=== PATIENT | female | born 1970 | race Caucasian/White ===

== ENCOUNTER 2020-10-16 14:06 | Outpatient (REF) | payer OTHER, SELFPAY | END 2020-10-16 14:07 | disposition home or self-care (01) | LOC: HO.LAB 14:06 | PROVIDERS: Visit Provider Hospitalist | DX: Z20.828 Contact with and (suspected) exposure to other viral communicable diseases (principal) | CPT/HCPCS: U0003 ==

== ENCOUNTER 2020-10-26 16:19 | Outpatient (REF) | payer OTHER, SELFPAY ==
--- NOTE | 2020-10-26 16:23 | MM_ITS ---
EXAMINATION: MM SCREENING DIGITAL BREAST TOMOSYNTHESIS, BILATERAL CLINICAL INFORMATION: Screening. Asymptomatic. The lifetime risk of breast cancer based on the Tyrer-Cuzick Model is 9%. COMPARISON: Mammography: 10/21/2019, 11/09/2018, 10/08/2018, targeted right breast ultrasound 10/08/2018 TECHNIQUE: Digital breast tomosynthesis is performed in both the craniocaudal and mediolateral oblique views along with computer-aided detection (CAD). Synthesized 2D images are generated from the tomosynthesis. FINDINGS: The breasts are heterogeneously dense, which may obscure small masses (ACR BI-RADS breast composition Category c). There is a fibrocystic parenchymal pattern similar to prior studies. There is no significant mass or interval architectural abnormality or abnormal calcifications.The skin contours are smooth. No significant changes. MM/MM tomosynthesis screening BI IMPRESSION: No significant changes from prior exams. ASSESSMENT: BI-RADS 2: Benign RECOMMENDATION: Routine annual mammography screening. This patient's information was entered into a reminder system with a target due date for their next mammogram.
== END 2020-10-26 16:20 | disposition home or self-care (01) ==
LOC: HO.MAMMO 16:19
PROVIDERS: PCP Hospitalist; Visit Provider Family Medicine
DX: Z12.31 Encounter for screening mammogram for malignant neoplasm of breast (principal)
CPT/HCPCS: 77063; 77067

== ENCOUNTER 2020-11-25 09:04 | Outpatient (REF) | payer OTHER, SELFPAY ==
[2020-11-25 10:38] LABS: Creatinine Urine 120.41 mg/dL; Microalbum/Creatinine Ratio Ur 4.9 ug/mg cr
[2020-11-25 10:40] LABS: Alanine Aminotransferase 13 U/L (0-31); Albumin Level 4.3 g/dL (3.5-5.0); Alkaline Phosphatase 116 U/L (39-117); Anion Gap 15 (12-20); Aspartate Amino Transferase 15 U/L (5-31); Bilirubin Total 0.4 mg/dL (0.0-1.0); Blood Urea Nitrogen 15 mg/dL (9-16); Calcium 9.4 mg/dL (8.4-10.2); Carbon Dioxide 27 mmol/L (22-29); Chloride 104 mmol/L (96-108); Cholesterol 166 mg/dL; Estimated Glomerular Filt Rate > 60; Glucose Fasting 101 mg/dL (60-99); HDL Cholesterol 62 mg/dL; LDL Cholesterol Calculated 65 mg/dl; Potassium 5.1 mmol/l (3.3-5.1); Sodium 141 mmol/L (135-145); Total Protein 7.4 g/dL (6.5-8.0); Triglycerides 197 mg/dL
[2020-11-25 11:01] LABS: TSH reflex Free T4 0.77 mIU/mL (0.32-4.0)
== END 2020-11-25 09:05 | disposition home or self-care (01) ==
LOC: HO.10HDL 09:04
PROVIDERS: Visit Provider Family Medicine
DX: Z00.00 Encounter for general adult medical examination without abnormal findings (principal); R03.0 Elevated blood-pressure reading, without diagnosis of hypertension
CPT/HCPCS: 36415; 80053; 80061; 82043; 84443

== ENCOUNTER 2021-12-18 09:42 | Outpatient (REF) | payer BC, SELFPAY ==
[2021-12-18 11:27] LABS: Alanine Aminotransferase 20 U/L (0-31); Albumin Level 4.3 g/dL (3.5-5.0); Alkaline Phosphatase 121 U/L (39-117); Anion Gap 12 (12-20); Aspartate Amino Transferase 21 U/L (5-31); Bilirubin Total 0.4 mg/dL (0.0-1.0); Blood Urea Nitrogen 13 mg/dL (9-16); Calcium 9.8 mg/dL (8.4-10.2); Carbon Dioxide 29 mmol/L (22-29); Chloride 104 mmol/L (96-108); Cholesterol 183 mg/dL; Estimated Glomerular Filt Rate > 60; Glucose Fasting 127 mg/dL (60-99); HDL Cholesterol 59 mg/dL; LDL Cholesterol Calculated 102 mg/dl; Potassium 5.4 mmol/L (3.3-5.1); Sodium 140 mmol/L (135-145); Total Protein 7.6 g/dL (6.5-8.0); Triglycerides 110 mg/dL
[2021-12-18 11:50] LABS: TSH reflex Free T4 0.69 uIU/mL (0.32-4.0)
== END 2021-12-18 09:43 | disposition home or self-care (01) ==
LOC: HO.LAB 09:42
PROVIDERS: PCP Family Medicine; Visit Provider Family Medicine
DX: Z00.00 Encounter for general adult medical examination without abnormal findings (principal)
CPT/HCPCS: 36415; 80053; 80061; 84443

== ENCOUNTER 2022-02-03 07:33 | Outpatient (REF) | payer BC, SELFPAY ==
--- NOTE | ~2022-02-03 | MM_ITS ---
EXAMINATION: MM SCREENING DIGITAL BREAST TOMOSYNTHESIS, BILATERAL CLINICAL INFORMATION: Screening. Asymptomatic. The lifetime risk of breast cancer based on the Tyrer-Cuzick Model is 8.1%. COMPARISON: Mammography: October 26, 2020 and studies dating back to January 10, 2014 TECHNIQUE: Digital breast tomosynthesis is performed in both the craniocaudal and mediolateral oblique views along with computer-aided detection (CAD). Synthesized 2D images are generated from the tomosynthesis. FINDINGS: The breasts are heterogeneously dense, which may obscure small masses (ACR BI-RADS breast composition Category c). There are no significant masses, abnormal calcifications, or other abnormalities. MM/MM tomosynthesis screening BI IMPRESSION: There are no significant changes from prior study. ASSESSMENT: BI-RADS 1: Negative RECOMMENDATION: Routine annual mammography screening. This patient's information was entered into a reminder system with a target due date for their next mammogram.
== END 2022-02-03 07:34 | disposition home or self-care (01) ==
LOC: HO.MAMMO 07:33
PROVIDERS: PCP Family Medicine; Visit Provider Family Medicine
DX: Z12.31 Encounter for screening mammogram for malignant neoplasm of breast (principal)
CPT/HCPCS: 77063; 77067

== ENCOUNTER 2022-08-04 07:55 | Emergency (ER) | payer BC, SELFPAY ==
--- NOTE | ~2022-08-04 | XR_ITS ---
EXAMINATION: XR CHEST CLINICAL INFORMATION: Chest discomfort COMPARISON: CTA chest 10/28/2019, chest radiograph 02/24/2015 TECHNIQUE: 2 views of the chest were obtained. FINDINGS: No significant abnormality is noted involving the heart, lungs, mediastinum, bony thorax or soft tissues. Minimally prominent left epicardial fat pad is present. XR/XR chest 2V IMPRESSION: Unremarkable examination.
--- NOTE | 2022-08-04 08:13 | ECG_ITS ---
Test Reason : chest discomfort Blood Pressure : / mmHG Vent. Rate : 085 BPM Atrial Rate : 085 BPM P-R Int : 138 ms QRS Dur : 078 ms QT Int : 374 ms P-R-T Axes : 045 013 014 degrees QTc Int : 445 ms Normal sinus rhythm Nonspecific ST abnormality Abnormal ECG When compared with ECG of 28-OCT-2019 10:19, Heart rate has decreased Referred By: Generic ED Physician Electronically Signed By:VALENTÍN SEGURA
[2022-08-04 08:15] VITALS: BP 155/75; PULSE 88; RESP 16; TEMP 36.3; O2SAT 98; BMI 32.1
[2022-08-04 08:40] LABS: MANUAL DIFF FLAG NO
[2022-08-04 08:41] LABS: Basophils Absolute Auto 0.1 X10*3/uL (0.0-0.2); Basophils Percent Auto 0.5 % (0-2); Eosinophils Absolute Auto 0.3 X10*3/uL (0.0-0.4); Eosinophils Percent Auto 3.2 % (0-4); Hematocrit 40.9 % (37.0-47.0); Hemoglobin 13.3 g/dl (12.0-16.0); Imm Gran Abs Auto 0.03 X10*3/uL (0.00-0.03); Imm Gran Pct Auto 0.3 % (0.0-0.4); Lymphocytes Absolute Auto 2.7 X10*3/uL (1.2-4.9); Lymphocytes Percent Auto 27.8 % (20-40); Mean Corpuscular HGB Conc 32.5 g/dl (31.0-35.0); Mean Corpuscular Hemoglobin 28.7 pg (27.0-33.0); Mean Corpuscular Volume 88.3 fL (80.0-98.0); Mean Platelet Volume 8.6 fL (9.4-12.3); Monocytes Absolute Auto 0.6 X10*3/uL (0.1-1.2); Monocytes Percent Auto 6.5 % (2-11); Neutrophils Absolute Auto 6.1 x10*3/uL (2.0-8.3); Neutrophils Percent Auto 61.7 % (45-73); Platelet Count 341 X10*3/uL (160-400); Red Blood Count 4.63 X10*6/uL (4.20-5.50); Red Cell Distribution Width 13.1 % (11.0-16.0); White Blood Count 9.8 X10*3/uL (4.8-10.8)
[2022-08-04 08:50] VITALS: BP 138/76; PULSE 81; RESP 18; TEMP 37; O2SAT 99
[2022-08-04 09:00] LABS: Anion Gap 18 (12-20); Blood Urea Nitrogen 14 mg/dL (9-16); Calcium 9.5 mg/dL (8.4-10.2); Carbon Dioxide 26 mmol/L (22-29); Chloride 103 mmol/L (96-108); Creatinine Clr Calc Pharmacy 66.5; Estimated Glomerular Filt Rate > 60; Glucose Random 142 mg/dL (60-115); Potassium 5.1 mmol/L (3.3-5.1); Sodium 142 mmol/L (135-145)
[2022-08-04 09:04] LABS: Troponin-I High Sensitivity < 3.5 ng/L (<3.5-17.0)
--- NOTE | 2022-08-04 09:31 | ED_ITS ---
HPI - General Adult General Chief complaint: General Medical Stated complaint: chest discomfort Time Seen by Provider: 08/04/22 08:47 Source: patient Mode of arrival: ambulatory Limitations: no limitations History of Present Illness HPI narrative: 51-year-old female with a history of hypertension and type 2 diabetes who presents to the ER for evaluation left-sided chest soreness for the last 5 days. She reports the soreness comes and goes at random times, last a few minutes and then goes away. She has no associated shortness of breath, nausea, diaphoresis with this. She denies any pain and said it is more of a soreness deep inside. The last few days the pain seems to go into the left shoulder at times. She has a family history of heart attacks in her father when he was elderly, she also has a history of familial hypercholesterolemia in her sister and father. She is on Lipitor. She is a nonsmoker. No current chest pain. MD complaint: chest pain Onset (ago): day(s) (5) Location: chest Radiation: extremity Severity: mild Quality: aching Pain Consistency: intermittent Relieving factors: none Exacerbating factors: none Associated symptoms: denies other symptoms Treatments prior to arrival: none Related Data Previous Rx's Medication Instructions Recorded atorvastatin 10 mg tablet 10 mg PO QPM 90 days #90 tabs 07/23/21 metoprolol succinate 25 mg 25 mg PO DAILY #90 tabs 07/23/21 tablet,extended release 24 hr losartan 50 mg tablet 50 mg PO DAILY #90 tabs 03/13/22 metformin 500 mg tablet,extended 500 mg PO DAILY 90 days #90 tabs 07/29/22 release 24 hr Allergies Allergy/AdvReac Type Severity Reaction Status Date / Time No Known Allergies Allergy Verified 03/23/22 16:15 Review of Systems Review of Systems: Constitutional: No Fever, No Chills ENT/Mouth: No sore throat, No Rhinorrhea, No Swallowing Difficulty Eyes: No Eye Pain, No Swelling, No Redness Cardiovascular: + Chest Pain, No SOB, No Orthopnea, No Edema Respiratory: No Cough, No Sputum, No Wheezing, No dyspnea Gastrointestinal: No Nausea, No Vomiting, No Diarrhea, No abdominal Pain, No Hematochezia, No Melena Genitourinary: No Dysuria, No Urinary Frequency, No Hematuria Musculoskeletal: No joint pain, No Myalgias Skin: No Skin Lesions, No rash Neuro: No Weakness, No Numbness, No Dizziness, No Headache Psych: + Anxiety/Panic, No Depression Heme/Lymph: No Bruising, No Lymphadenopathy Endocrine: No Polyuria, No Polydipsia PMFSH Past Medical History Medical History (Updated 08/04/22 @ 11:23 by MAEVE Ramirez) Encounter for removal of Essure Family History Family History (Updated 05/03/22 @ 09:00 by Portia Aguayo) Father Cancer Myocardial infarction HTN (hypertension) CVD (cardiovascular disease) Mother HTN (hypertension) Alzheimer's disease Diabetes mellitus Brother No problems noted. Sister No problems noted. Daughter No problems noted. Social History Social History Housing: House Alcohol intake: current Alcohol intake frequency: holidays/special occasions only Patient Tobacco Use Status: Never used Tobacco Smoked in Last 30 Days: No e-Cigarette/Vaping Use: Never Used Use of substances other than those prescribed or required for medical reasons: No Advance Directives: No Advance Directives Information Provided: No service: No Current occupational status: employed Current occupation: [employer] Cognitive needs: No Hearing needs: No Vision needs: No Physical Exam ED Vital Signs: Vital Signs - 24 hr 08/04/22 08:15 08/04/22 08:50 Temperature 97.3 F 98.6 F Pulse Rate 88 81 Respiratory Rate 16 18 Blood Pressure 155/75 H 138/76 Pulse Oximetry 98 99 Oxygen Delivery Method Room Air Room Air BMI result Body Mass Index 32.1 Appearance: Alert. Oriented X3. No acute distress. Eyes: Pupils equal, round and reactive to light. ENT: Pharynx normal. Neck: Normal inspection. Neck supple. CVS: Normal heart rate and rhythm. Pulses normal. No chest wall Respiratory: No respiratory distress. Breath sounds normal. Abdomen: Soft and nontender. +BS x4 Skin: Skin warm and dry. Normal skin color. Normal skin turgor. No rashes. Extremities: No lower extremity edema. No calf tenderness or swelling Neuro: Oriented X 3. No motor deficit. No sensory deficit. Course Course Course Narrative: 51-year-old female with history of DM 2, HTN, HLD presents to the ER for evaluation of 5 days of intermittent left-sided chest ?soreness.? EKG without ischemic changes. Labs pending. Reevaluation(s) Reevaluation #1: Troponin <3.5 which is reassuring against any cardiac ischemia. Given her risk factors will do a 3 hour repeat. Low suspicion for PE at this time. No clinical evidence of DVT. Reevaluation #2: 2nd troponin is <3.5. At this time comfortable with d/c home with outpatient c ardiac workup. She has an appointment with her PCP next week. Return precautions discussed. Stable for d/c home. Medical Decision Making Lab Data Result diagrams: 08/04/22 08:30 08/04/22 08:30 Labs: Lab Results 08/04/22 08/04/22 08/04/22 Range/Units 08:30 08:30 08:30 WBC 9.8 (4.8-10.8) X10*3/uL RBC 4.63 (4.20-5.50) X10*6/uL Hgb 13.3 (12.0-16.0) g/dl Hct 40.9 (37.0-47.0) % MCV 88.3 (80.0-98.0) fL MCH 28.7 (27.0-33.0) pg MCHC 32.5 (31.0-35.0) g/dl RDW 13.1 (11.0-16.0) % Plt Count 341 (160-400) X10*3/uL MPV 8.6 L (9.4-12.3) fL Immature Gran % (Auto) 0.3 (0.0-0.4) % Neut % (Auto) 61.7 (45-73) % Lymph % (Auto) 27.8 (20-40) % Elliott % (Auto) 6.5 (2-11) % Eos % (Auto) 3.2 (0-4) % Baso % (Auto) 0.5 (0-2) % Lymph # (Auto) 2.7 (1.2-4.9) X10*3/uL Elliott # (Auto) 0.6 (0.1-1.2) X10*3/uL Eos # (Auto) 0.3 (0.0-0.4) X10*3/uL Baso # (Auto) 0.1 (0.0-0.2) X10*3/uL Abs Immat Gran (auto) 0.03 (0.00-0.03) X10*3/uL Absolute Neuts (auto) 6.1 (2.0-8.3) x10*3/uL Absolute Nucleated RBC 0.000 (0.0-0.012) X10*3/uL Nucleated RBC % (auto) 0.0 (0.0-0.2) /100WBC Sodium 142 (135-145) mmol/L Potassium 5.1 (3.3-5.1) mmol/L Chloride 103 (96-108) mmol/L Carbon Dioxide 26 (22-29) mmol/L Anion Gap 18 (12-20) BUN 14 (9-16) mg/dL Creatinine 0.93 (0.5-1.4) mg/dL Estim Creat Clear Calc 66.5 Estimated GFR > 60 Random Glucose 142 H (60-115) mg/dL Calcium 9.5 (8.4-10.2) mg/dL Troponin I High Sens < 3.5 (<3.5-17.0) ng/L 08/04/22 Range/Units 10:36 WBC (4.8-10.8) X10*3/uL RBC (4.20-5.50) X10*6/uL Hgb (12.0-16.0) g/dl Hct (37.0-47.0) % MCV (80.0-98.0) fL MCH (27.0-33.0) pg MCHC (31.0-35.0) g/dl RDW (11.0-16.0) % Plt Count (160-400) X10*3/uL MPV (9.4-12.3) fL Immature Gran % (Auto) (0.0-0.4) % Neut % (Auto) (45-73) % Lymph % (Auto) (20-40) % Elliott % (Auto) (2-11) % Eos % (Auto) (0-4) % Baso % (Auto) (0-2) % Lymph # (Auto) (1.2-4.9) X10*3/uL Elliott # (Auto) (0.1-1.2) X10*3/uL Eos # (Auto) (0.0-0.4) X10*3/uL Baso # (Auto) (0.0-0.2) X10*3/uL Abs Immat Gran (auto) (0.00-0.03) X10*3/uL Absolute Neuts (auto) (2.0-8.3) x10*3/uL Absolute Nucleated RBC (0.0-0.012) X10*3/uL Nucleated RBC % (auto) (0.0-0.2) /100WBC Sodium (135-145) mmol/L Potassium (3.3-5.1) mmol/L Chloride (96-108) mmol/L Carbon Dioxide (22-29) mmol/L Anion Gap (12-20) BUN (9-16) mg/dL Creatinine (0.5-1.4) mg/dL Estim Creat Clear Calc Estimated GFR Random Glucose (60-115) mg/dL Calcium (8.4-10.2) mg/dL Troponin I High Sens < 3.5 (<3.5-17.0) ng/L ECG Data Attestation: I personally reviewed and interpreted this ECG as follows: Interpretation: Normal sinus rhythm, ventricular 85 beats per minute, normal WA interval, normal QTC, no ST segment elevations or depressions. Discharge Plan Discharge Clinical Impression: Atypical chest pain Patient Disposition: Home, Self-Care Instructions: Chest Pain (DC) Additional Instructions: Workup today was unremarkable, with normal EKG and negative cardiac enzymes x2. Recommend following up with Cardiology for outpatient workup. Follow up with your PCP next week as scheduled. If you develop new or worsening symptoms call 911 or come back to the ER for fur ther evaluation. Prescriptions: No Action losartan 50 mg tablet 50 mg PO DAILY Qty: 90 0RF metformin 500 mg tablet extended release 24 hr 500 mg PO DAILY 90 Days Qty: 90 4RF atorvastatin 10 mg tablet 10 mg PO QPM 90 Days Qty: 90 3RF metoprolol succinate 25 mg tablet extended release 24 hr 25 mg PO DAILY Qty: 90 4RF Referrals: [facility] [Provider Group] Otto Galeas MD [Primary Care Provider] - Stand Alone Forms: Work/School Release Interventions: ED Discharge Assessment Last Done: 08/04/22 11:34 Discharge Date/Time: 08/04/22 11:35
[2022-08-04 11:04] LABS: Troponin-I High Sensitivity < 3.5 ng/L (<3.5-17.0)
--- NOTE | 2022-08-04 11:33 | PC.NURSE ---
pt pwd at time of discharge. pt ambulated independently. pt provided with work note. pt provided with discharge packet at time of discharge. pt verbalized understanding of the discharge plan
== END 2022-08-04 11:35 | disposition home or self-care (01) ==
PROVIDERS: Physician Assistant; Emergency Provider Emergency Medicine; PCP Family Medicine
DX: R07.89 Other chest pain (principal); E11.9 Type 2 diabetes mellitus without complications; I10 Essential (primary) hypertension; E78.5 Hyperlipidemia, unspecified; Z79.02 Long term (current) use of antithrombotics/antiplatelets; Z79.899 Other long term (current) drug therapy; Z79.84 Long term (current) use of oral hypoglycemic drugs
CPT/HCPCS: 36415; 71046; 80048; 84484; 85025; 93005; 99283; 99284

== ENCOUNTER → 2022-09-12 07:55 | Outpatient (REF) | payer BC, SELFPAY ==
--- NOTE | 2022-09-12 07:57 | CA_ITS ---
Acquisition Time: 2022-09-12 09:10:14 Total Exercise Time: 00:06:37 Test Indications: CP Medications: SEE CHART Protocol: LASHA Max HR: 150 BPM 89% of Pred: 168 BPM Max BP: 158/078 mmHG Max Work Load: 7.9 METS Exercise stress test with exercise 6 min 37 sec of Lasha protocol, achieving 89% MPHR, with mild sob, no chest discomfort, without arrythmia, with normotensive response to exercise, with borderline ST changes noted. Test reviewed with Dr Amanda. Referred By: Otto Galeas Overread By: ARIANNA CARTER
== END ==
LOC: HO.CARD 07:55
PROVIDERS: PCP Family Medicine; Visit Provider Family Medicine
DX: R07.9 Chest pain, unspecified (principal)
CPT/HCPCS: 93017

== ENCOUNTER → 2022-10-03 10:53 | Outpatient (REF) | payer BC, SELFPAY ==
--- NOTE | 2022-10-03 10:55 | CA_ITS ---
Acquisition Time: 2022-10-03 11:01:01 Total Exercise Time: 00:06:45 Test Indications: CP Medications: SEE CHART Protocol: LASHA Max HR: 162 BPM 96% of Pred: 168 BPM Max BP: 164/072 mmHG Max Work Load: 8.1 METS Exercise stress test with exercise 6 min 45 sec of Lasha protocol, achieving 95% MPHR, without anginal symptoms, without arrythmia, with normotensive response to exercise, with borderline ST change noted, not meeting criteria for ischemia. Echo images obtained by tech at rest and immediately post peak exercise, Definity contrast used. Test reviewed with Dr Amanda Referred By: Otto Galeas Overread By: ARIANNA CARTER
== END ==
LOC: HO.CARD 10:53
PROVIDERS: Visit Provider Family Medicine
DX: R07.9 Chest pain, unspecified (principal)
CPT/HCPCS: 93350; Q9957

== ENCOUNTER → 2022-10-25 13:15 | Outpatient (BNVA) | payer BC, SELFPAY | PROVIDERS: PCP Family Medicine; Referring Provider Family Medicine; Visit Provider Internal Medicine | DX: R07.9 Chest pain, unspecified (principal) ==

== ENCOUNTER 2022-11-10 08:51 | Outpatient (REF) | payer BC, SELFPAY ==
[2022-11-10 11:03] LABS: Anion Gap 14 (12-20); Blood Urea Nitrogen 14 mg/dL (9-16); Calcium 9.4 mg/dL (8.4-10.2); Carbon Dioxide 26 mmol/L (22-29); Chloride 106 mmol/L (96-108); Estimated Glomerular Filt Rate > 60; Glucose Random 138 mg/dL (60-115); Potassium 5.1 mmol/L (3.3-5.1); Sodium 141 mmol/L (135-145)
== END 2022-11-10 08:52 | disposition home or self-care (01) ==
LOC: HO.10HDL 08:51
PROVIDERS: PCP Family Medicine; Visit Provider Internal Medicine
DX: R07.9 Chest pain, unspecified (principal)
CPT/HCPCS: 36415; 80048

== ENCOUNTER → 2023-02-01 13:20 | Outpatient (BNVA) | payer BC, SELFPAY | PROVIDERS: PCP Family Medicine; Referring Provider Family Medicine; Visit Provider Internal Medicine | DX: Z13.89 Encounter for screening for other disorder (principal) ==

== ENCOUNTER 2023-02-06 07:34 | Outpatient (REF) | payer BC, SELFPAY ==
--- NOTE | ~2023-02-06 | MM_ITS ---
EXAMINATION: MM SCREENING DIGITAL BREAST TOMOSYNTHESIS, BILATERAL CLINICAL INFORMATION: Screening. Asymptomatic. The lifetime risk of breast cancer based on the Tyrer-Cuzick Model is 8%. COMPARISON: Mammography: 02/03/2022, 10/26/2020, 10/21/2019 TECHNIQUE: Digital breast tomosynthesis is performed in both the craniocaudal and mediolateral oblique views along with computer-aided detection (CAD). Synthesized 2D images are generated from the tomosynthesis. Additional left MLO view is provided. FINDINGS: The breasts are heterogeneously dense, which may obscure small masses (ACR BI-RADS breast composition Category c). There are no significant masses, abnormal calcifications, or other abnormalities. There is no developing density or interval architectural abnormality. The axilla and skin contours are unremarkable. Again, there is intramammary node posterior upper outer left breast. Left MLO tomography again shows stable smooth 1 cm nodular asymmetry central upper breast. MM/MM tomosynthesis screening BI IMPRESSION: No mammographic evidence of malignancy. ASSESSMENT: BI-RADS 2: Benign RECOMMENDATION: Routine annual mammography screening. This patient's information was entered into a reminder system with a target due date for their next mammogram.
== END 2023-02-06 07:35 | disposition home or self-care (01) ==
LOC: HO.MAMMO 07:34
PROVIDERS: PCP Family Medicine; Visit Provider Student in an Organized Health Care Education/Training Program
DX: Z12.31 Encounter for screening mammogram for malignant neoplasm of breast (principal)
CPT/HCPCS: 77063; 77067

== ENCOUNTER 2023-06-05 16:26 | Outpatient (AMB) | payer BC, SELFPAY ==
[2023-06-05 16:29] VITALS: BP 130/78; PULSE 82; RESP 12; TEMP 36.6; O2SAT 98; BMI 32.3
--- NOTE | 2023-06-05 16:29 | MHC.PC.OV ---
Vital Signs 06/05/23 16:29 Height 5 ft 1 in Weight 171 lb BMI 32.3 BP 130/78 Blood Pressure Location Lt brachial Position Sitting Respiration 12 Pulse 82 Pulse Source Pulse Oximeter Temp 97.9 F Temp Source Oral Pulse Oximetry (%) 98 Oxygen Delivery Method Room Air Intake Visit Reasons: 3 mos diabetes Sand Screener Required: No Accompanied by: Self / Same As Patient Is last menstrual period known: Yes Post menopausal: Yes Patient : No Allergies No Known Allergies Allergy (Verified 03/28/23 17:01) Medication List - Last Reconciled 06/05/23 by Rosie Law, RN atorvastatin 10 mg PO QPM 90 days losartan 50 mg PO DAILY 90 days metformin ER 250 mg (1/2 x 500 mg) PO DAILY 90 days metoprolol succinate ER 50 mg PO DAILY 90 days semaglutide (Ozempic) 0.25 mg (0.4 mL) subcut QWEEK 28 days Tobacco use date assessed: 09/06/22 Dental Screening Did you have a dental visit in the last 12 months?: Yes Did you have a dental problem in the last 6 months where you did not have access to dental care?: No Was dental information given to patient?: No HPI 3 mos diabetes HPI Details 52 y/o female presents to f/u diabetes. Last A1c 02/08/23 6.6%. She is on metformin 250mg and Ozempic 0.25mg. A1c today 06/05/23 is 6.2%. [facility] Medical History (Updated 11/18/22 @ 16:54 by Raheem Yu) Diabetes type 2, controlled Essential hypertension Hyperlipidemia, unspecified Surgical History No pertinent past surgical history Family History Father Cancer Myocardial infarction HTN (hypertension) CVD (cardiovascular disease) Mother HTN (hypertension) Alzheimer's disease Diabetes mellitus Brother No problems noted. Sister No problems noted. Daughter No problems noted. Social History Housing: House Alcohol intake: current Alcohol intake frequency: holidays/special occasions only Patient Tobacco Use Status: Never used Tobacco e-Cigarette/Vaping Use: Never Used Second Hand Smoke Exposure: No service: No Current occupational status: employed Current occupation: [employer] Current occupational exposures/hazards: No Cognitive needs: No Hearing needs: No Vision needs: No Female Reproductive History Menstrual control method: none Menopause type: natural Questionnaire PHQ-9 Over the last 2 weeks, how often have you been bothered by any of the following problems? 1. Little interest or pleasure in doing things: not at all 2. Feeling down, depressed, or hopeless: not at all 3. Trouble falling or staying asleep, or sleeping too much: not at all 4. Feeling tired or having little energy: not at all 5. Poor appetite or overeating: not at all 6. Feeling bad about yourself - or that you are a failure or have let yourself or your family down: not at all 7. Trouble concentrating on things, such as reading the newspaper or watching television: not at all 8. Moving or speaking so slowly that other people could have noticed. Or the opposite - being so fidgety or restless that you have been moving around a lot more than usual: not at all 9. Thoughts that you would be better off or of hurting yourself in some way: not at all Total score: 0 Depression Screening Interpretation: Negative Source: Developed by Drs. Randy Hudson, Martine Ni, Sujit Castillo and colleagues, with an educational mo from [employer]. Thrive Questionnaire Date Thrive assessed: 11/18/22 MIKE-7 AMB Questionnaire MIKE-7 Date MIKE - 7 assessed: 12/22/21 Source: Developed by Drs. Randy Hudson, Sujit Trujillo and colleagues, with an educational mo from [employer]. Review of Systems Const Denies chills, Denies fatigue, Denies fever(s), Denies headache(s) and Denies weakness ENT Denies dizziness and Denies headache(s) Card Denies chest pain, Denies lightheadedness, Denies dyspnea and Denies other (Palpitations) Resp Denies cough, Denies dyspnea, Denies wheezing and Denies other ( shortness of breath) Musc Denies numbness and Denies tingling Neuro Denies dizziness, Denies headache(s), Denies numbness, Denies tingling, Denies paresthesias and Denies weakness Psych Denies anxiety and Denies depression Endo Denies fatigue Aller/Immun Denies wheezing Physical exam (Primary Care) Vital Signs: Last Vital Signs Temp 97.9 F 06/05/23 16:29 Pulse 82 06/05/23 16:29 Resp 12 06/05/23 16:29 BP 130/78 06/05/23 16:29 Pulse Ox 98 06/05/23 16:29 Oxygen Delivery Method Room Air 06/05/23 16:29 BMI result Body Mass Index 32.3 Tobacco/Smoking Status: Tobacco use Status Tobacco use date assessed 09/06/22 06/05/23 16:38 Patient Tobacco Use Status Never used Tobacco 06/05/23 16:38 e-Cigarette/Vaping Use Never Used 06/05/23 16:38 PHQ-9: PHQ-9 Score PHQ-9: Total score 0 06/05/23 17:09 Depression Screening Interpretation: Negative Thrive Assessment: Date of Thrive Assessment Date Thrive assessed 11/18/22 06/05/23 16:38 Const General: no acute distress and well developed Nutritional Appearance: well nourished Orientation/consciousness: patient oriented x3 HENMT Head: Yes normocephalic and Yes atraumatic Eyes General: appearance normal, both eyes and all related structures Pupils: Equal, round and reactive pupils present EOM: EOMs intact bilaterally Resp Effort & Inspection: normal respiratory effort Auscultation: clear to auscultation bilaterally Cardio Rate: regular rate Rhythm: regular rhythm Heart sounds: S1 normal heart sound present, S2 normal heart sound present, no gallops, no murmurs and no rubs Neuro General: patient oriented x3 and gait normal Cranial nerves: Yes Equal, round and reactive pupils present Psych Affect: normal affect Assessment and Plan Assessment & Plan (1) Diabetes type 2, controlled: Code(s): E11.9 - Type 2 diabetes mellitus without complications Plan: A1c continues to improve from 6.6% down to 6.2% today Will have her stop metformin and continue Ozempic for simplicity in her regimen She is taking Ozempic 0.25 mg weekly though the package contains enough for 0.5 mg 4 to of her weeks per month - she would need additional to pen needles to complete all of her medication. She will continue 0.25 mg weekly as this is controlling her blood sugars and she is having good affect for weight loss. If A1c climbs with her next visit, would increase Ozempic (2) Weight gain: Code(s): R63.5 - Abnormal weight gain Plan: Continues to lose weight and I encouraged diet exercise and continue Ozempic Orders: Referrals Ophthalmology Referral E11.9 - Type 2 diabetes mellitus without complications Medications: Discontinued metformin ER Discontinued Reason: Doctor's Order 250 mg (1/2 x 500 mg) PO DAILY 45 tabs 4RF 90 days Coding Level of Care Code Est Pt Level 3 (64765) Diagnoses Diabetes type 2, controlled E11.9 Weight gain R63.5
== END 2023-06-05 17:20 | disposition home or self-care (01) ==
PROVIDERS: Visit Provider Family Medicine
DX: E11.9 Type 2 diabetes mellitus without complications (principal); R63.5 Abnormal weight gain
CPT/HCPCS: 99213

== ENCOUNTER 2023-09-04 16:14 | Outpatient (AMB) | payer BC, SELFPAY ==
[2023-09-04 16:22] VITALS: BP 130/72; PULSE 92; O2SAT 98; BMI 31.2
--- NOTE | 2023-09-04 16:22 | A.OFFPC_ITS ---
Vital Signs 09/04/23 16:22 Height 5 ft 1 in Weight 165 lb BMI 31.2 BP 130/72 Blood Pressure Location Lt brachial Position Sitting Pulse 92 Pulse Source Pulse Oximeter Pulse Oximetry (%) 98 Oxygen Delivery Method Room Air Intake Visit Reasons: f/u diabetes Intake Note: Patient is here to follow up on her diabetes. Allergies No Known Allergies Allergy (Verified 03/28/23 17:01) Tobacco use date assessed: 09/06/22 HPI f/u diabetes HPI Details 52 y/o female presents to f/u diabetes. A1c today 09/04/23 is 5.8% which improved from 6.6% in February. She is on Ozempic 0.25mg. Had stopped her metformin. She has lost another 5-6 lbs. She continues tolerating Ozempic well. [facility] Medical History Hyperlipidemia, unspecified Essential hypertension Diabetes type 2, controlled Surgical History No pertinent past surgical history Family History Father Cancer Myocardial infarction HTN (hypertension) CVD (cardiovascular disease) Mother HTN (hypertension) Alzheimer's disease Diabetes mellitus Brother No problems noted. Sister No problems noted. Daughter No problems noted. Social History Housing: House Alcohol intake: current Alcohol intake frequency: holidays/special occasions only Patient Tobacco Use Status: Never used Tobacco e-Cigarette/Vaping Use: Never Used Second Hand Smoke Exposure: No service: No Current occupational status: employed Current occupation: [employer] Current occupational exposures/hazards: No Cognitive needs: No Hearing needs: No Vision needs: No Questionnaire Thrive Questionnaire Date Thrive assessed: 11/18/22 MIKE-7 AMB Questionnaire MIKE-7 Date MIKE - 7 assessed: 12/22/21 Source: Developed by Drs. Randy Hudson, Martine Ni, Sujit Castillo and colleagues, with an educational mo from [employer]. Review of Systems Const Denies chills, Denies fatigue, Denies fever(s), Denies headache(s) and Denies weakness ENT Denies dizziness and Denies headache(s) Card Denies dyspnea Resp Denies cough, Denies dyspnea, Denies wheezing and Denies other (shortness of breath) Musc Denies numbness and Denies tingling Neuro Denies dizziness, Denies headache(s), Denies numbness, Denies tingling and Denies weakness Psych Denies anxiety and Denies depression Endo Denies fatigue Aller/Immun Denies wheezing Physical exam (Primary Care) Vital Signs: Last Vital Signs Pulse 92 09/04/23 16:22 BP 130/72 09/04/23 16:22 Pulse Ox 98 09/04/23 16:22 Oxygen Delivery Method Room Air 09/04/23 16:22 BMI result Body Mass Index 31.2 Tobacco/Smoking Status: Tobacco use Status Tobacco use date assessed 09/06/22 09/04/23 16:24 Patient Tobacco Use Status Never used Tobacco 09/04/23 16:24 e-Cigarette/Vaping Use Never Used 09/04/23 16:24 Thrive Assessment: Date of Thrive Assessment Date Thrive assessed 11/18/22 09/04/23 16:24 Const General: well developed; No acute distress Nutritional Appearance: well nourished Orientation/consciousness: patient oriented x3 HENMT Head: Yes normocephalic and Yes atraumatic Eyes General: appearance normal, both eyes and all related structures Pupils: Equal, round and reactive pupils present EOM: EOMs intact bilaterally Resp Effort & Inspection: normal respiratory effort Neuro General: patient oriented x3 and gait normal Cranial nerves: Yes Equal, round and reactive pupils present Psych Affect: normal affect Results AMB Hemoglobin A1c AMB Hemoglobin A1c 5.8 % Last Edit by Ila Roque CMA on 09/04/23 16:39 Results Reviewed Results Reviewed: Laboratory Last Values Hgb A1c (Clinic) 5.8 % (4.0-6.0) 09/04/23 16:35 Assessment and Plan Assessment & Plan (1) Diabetes type 2, controlled: Code(s): E11.9 - Type 2 diabetes mellitus without complications Plan: A1c 5.8% is very good control despite stopping metformin. She continues on Ozempic without any problems. Continue Ozempic and diabetic diet recommended diabetic eye exam. Had referred her at prior visit and she notes they had called her but she has not had an appointment set up yet. Gave patient phone number and she will call. Orders: Orders UA and rflx microscopic Today Z00.00 - Encounter for general adult medical examination without abnormal findings AMB Hemoglobin A1c Today Z13.9 - Encounter for screening, unspecified Comprehensive [place]. Panel Fast Today Z00.00 - Encounter for general adult medical examination without abnormal findings Lipid Panel Today Z00.00 - Encounter for general adult medical examination without abnormal findings Microalbumin, Random (w Creat) Today I10 - Essential (primary) hypertension TSH reflex Free T4 Today Z00.00 - Encounter for general adult medical examination without abnormal findings Medications: Refilled metoprolol succinate ER 50 mg PO DAILY 90 tabs 5RF 90 days I10 - Essential (primary) hypertension semaglutide (Ozempic) for 4 weeks 0.25 mg (0.368 mL) subcut QWEEK 1.6 mL 2RF 28 days E11.9 - Type 2 diabetes mellitus without complications Coding Level of Care Code Est Pt Level 3 (28750) Diagnoses Diabetes type 2, controlled E11.9
== END 2023-09-07 10:04 | disposition home or self-care (01) ==
PROVIDERS: PCP Family Medicine; Visit Provider Family Medicine
DX: E11.9 Type 2 diabetes mellitus without complications (principal); Z13.9 Encounter for screening, unspecified
CPT/HCPCS: 83036; 99213

== ENCOUNTER 2023-12-07 07:13 | Outpatient (REF) | payer BC, SELFPAY ==
[2023-12-07 08:39] LABS: Alanine Aminotransferase 17 U/L (0-31); Albumin Level 4.4 g/dL (3.5-5.0); Anion Gap 13 (12-20); Aspartate Amino Transferase 23 U/L (5-31); Bilirubin Total 0.6 mg/dL (0.0-1.0); Blood Urea Nitrogen 18 mg/dL (9-16); Carbon Dioxide 28 mmol/L (22-29); Chloride 104 mmol/L (96-108); Cholesterol 176 mg/dL (<200); Estimated Glomerular Filt Rate 54; Glucose Fasting 136 mg/dL (60-99); HDL Cholesterol 57 mg/dL (>40); LDL Cholesterol Calculated 99 mg/dL (<100); Potassium 5.1 mmol/L (3.3-5.1); Sodium 140 mmol/L (135-145); TSH reflex Free T4 1.09 uIU/mL (0.32-4.0); Triglycerides 104 mg/dL (<150)
[2023-12-07 08:49] LABS: Alkaline Phosphatase 117 U/L (39-117)
== END 2023-12-07 07:14 | disposition home or self-care (01) ==
LOC: HO.LAB 07:13
PROVIDERS: PCP Family Medicine; Visit Provider Family Medicine
DX: Z00.00 Encounter for general adult medical examination without abnormal findings (principal)
CPT/HCPCS: 36415; 80053; 80061; 84443

== ENCOUNTER 2023-12-19 15:44 | Outpatient (AMB) | payer BC, SELFPAY ==
--- NOTE | 2023-12-19 16:03 | MHC.PC.OV ---
Vital Signs 12/19/23 16:10 Height 5 ft 1 in Weight 161 lb 8 oz BMI 30.5 BP 128/66 Blood Pressure Location Lt brachial Position Sitting Pulse 81 Pulse Source Pulse Oximeter Pulse Oximetry (%) 99 Oxygen Delivery Method Room Air Intake Visit Reasons: CPE Intake Note: Patient is here for her physical today. Allergies No Known Allergies Allergy (Verified 12/19/23 16:11) Tobacco use date assessed: 12/19/23 Dental Screening Dental Screen Date: 12/19/23 Did you have a dental visit in the last 12 months?: Yes Did you have a dental problem in the last 6 months where you did not have access to dental care?: No Was dental information given to patient?: Patient has dentist HPI CPE HPI Details 53 y/o female presents for a CPE with f/u labs and health maintenance. Labs were drawn 12/07/23. Reviewed labs with pt. A1c today 12/19/23 is 6.4%. Triglycerides 104. TC 176. LDL 99. HDL 57. Blood pressure today 128/66. She is on losartan 50mg, metoprolol 50mg daily. She notes she had a recent diabetic eye exam. Pt reports she is up to date on her mammogram. [facility] Medical History Hyperlipidemia, unspecified Essential hypertension Diabetes type 2, controlled Surgical History No pertinent past surgical history Family History Father Cancer Myocardial infarction HTN (hypertension) CVD (cardiovascular disease) Mother HTN (hypertension) Alzheimer's disease Diabetes mellitus Brother No problems noted. Sister No problems noted. Daughter No problems noted. Social History Housing: House Alcohol intake: current Alcohol intake frequency: holidays/special occasions only Patient Tobacco Use Status: Never used Tobacco e-Cigarette/Vaping Use: Never Used Second Hand Smoke Exposure: No service: No Current occupational status: employed Current occupation: [employer] Current occupational exposures/hazards: No Cognitive needs: No Hearing needs: No Vision needs: No Questionnaire PHQ-9 Over the last 2 weeks, how often have you been bothered by any of the following problems? 1. Little interest or pleasure in doing things: not at all 2. Feeling down, depressed, or hopeless: not at all 3. Trouble falling or staying asleep, or sleeping too much: not at all 4. Feeling tired or having little energy: not at all 5. Poor appetite or overeating: not at all 6. Feeling bad about yourself - or that you are a failure or have let yourself or your family down: not at all 7. Trouble concentrating on things, such as reading the newspaper or watching television: not at all 8. Moving or speaking so slowly that other people could have noticed. Or the opposite - being so fidgety or restless that you have been moving around a lot more than usual: not at all 9. Thoughts that you would be better off or of hurting yourself in some way: not at all Total score: 0 Source: Developed by Drs. Randy Hudson, Martine Ni, Sujit Castillo and colleagues, with an educational mo from [employer]. Thrive Questionnaire Date Thrive assessed: 12/19/23 I am a: Patient What is your living situation today?: I have a steady place to live Within the past 12 months, did the food you bought not last and you didn't have the money to get more?: Never true Within the past 12 months, did you worry whether your food would run out before you got money to buy more?: Never true Do you have trouble paying for medicines?: No Do you have trouble getting transportation to medical appointments?: No Do you have trouble paying your heating and electricity bill?: No Do you have trouble taking care of your child, family member or friend?: No Do you have trouble with day-to-day activities such as bathing, preparing meals, shopping, managing finances, etc.?: No Are you currently unemployed and looking for a job?: No Are you interested in more education?: No THRIVE Score: 0 AUDIT C Alcohol Use Questionnaire (AUDIT-C) 1. How often do you have a drink containing alcohol?: Never 2. How many drinks containing alcohol do you have on a typical day when you are drinking?: 3 or 4 3. How often do you have six or more drinks on one occasion?: Never Total Score: 1 MIEK-7 AMB Questionnaire MIKE-7 Date MIKE - 7 assessed: 12/19/23 Feeling nervous, anxious, or on edge: 0 = Not at all Not being able to stop or control worryin = Several days Worrying too much about different things: 1 = Several days Trouble relaxin = Not at all Being so restless that it is hard to sit still: 0 = Not at all Becoming easily annoyed or irritable: 1 = Several days Feeling afraid as if something awful might happen: 0 = Not at all Total MIKE-7 score (0-4 normal; 5-9 mild; 10-14 moderate; 15-21 severe): 3 Source: Developed by Drs. Randy Hudson, Martine Ni, Sujit Castillo and colleagues, with an educational mo from [employer]. Review of Systems Const Denies chills, Denies fatigue, Denies fever(s), Denies headache(s) and Denies weakness Eyes Denies change in vision ENT Denies dizziness, Denies headache(s), Denies hearing loss, Denies nasal congestion, Denies sinus pain, Denies sinus pressure and Denies sore throat Card Denies chest pain, Denies lightheadedness, Denies dyspnea and Denies other (palpitations) Resp Denies cough, Denies dyspnea and Denies wheezing GI Denies abdominal pain, Denies melena, Denies hematochezia, Denies change in bowel habits, Denies dyspepsia and Denies nausea Denies hematuria and Denies dysuria Musc Denies abnormal gait, Denies myalgias, Denies arthralgias, Denies numbness and Denies tingling Skin/Breast Denies rash, Denies unusual bruising and Denies wounds Neuro Denies abnormal gait, Denies dizziness, Denies headache(s), Denies memory loss, Denies numbness, Denies Sensory deficit (Neuro), Denies tingling and Denies weakness Psych Denies anxiety, Denies depression and Denies memory loss Endo Denies cold intolerance, Denies fatigue, Denies heat intolerance, Denies polydipsia and Denies polyuria Demar/Lymph Denies easy bleeding and Denies easy bruising Aller/Immun Denies wheezing Physical exam (Primary Care) Vital Signs: Last Vital Signs Pulse 81 12/19/23 16:10 BP 128/66 12/19/23 16:10 Pulse Ox 99 12/19/23 16:10 Oxygen Delivery Method Room Air 12/19/23 16:10 BMI result Body Mass Index 30.5 Tobacco/Smoking Status: Tobacco use Status Tobacco use date assessed 12/19/23 12/19/23 16:18 Patient Tobacco Use Status Never used Tobacco 12/19/23 16:03 e-Cigarette/Vaping Use Never Used 12/19/23 16:03 PHQ-9: PHQ-9 Score PHQ-9: Total score 0 12/19/23 16:18 Thrive Assessment: Date of Thrive Assessment Date Thrive assessed 12/19/23 12/19/23 16:18 Const General: no acute distress, well developed, alert and awake Nutritional Appearance: well nourished Orientation/consciousness: patient oriented x3 HENMT Head: Yes normocephalic and Yes atraumatic Ears: hearing grossly normal bilaterally and TM's normal bilaterally General nose exam: Normal external nose present and Normal nares present Mouth: Normal oral and palatal mucosa present and moist mucous membranes Teeth and gingiva: dentition normal Throat: Yes posterior oropharynx normal Eyes General: appearance normal, both eyes and all related structures Pupils: Equal, round and reactive pupils present and Pupil accommodation reflex normal EOM: EOMs intact bilaterally Neck Neck: Yes normal visual inspection, Yes no lymphadenopathy and Yes trachea midline Thyroid: Thyroid normal Carotids: no bruits Lymphatic: no lymphadenopathy noted Chest Chest palpation & inspection: normal inspection of the chest Resp Effort & Inspection: normal respiratory effort Auscultation: clear to auscultation bilaterally Cardio Rate: regular rate Rhythm: regular rhythm Heart sounds: S1 normal heart sound present, S2 normal heart sound present, no gallops, no murmurs and no rubs Bruits: no abdominal aortic bruits and no carotid bruits GI Palpation (GI): No Abdominal aortic bruit present, Soft to palpation, nontender, No hepatosplenomegaly present and No Rebound tenderness present Auscultation: normal bowel sounds General: Yes no CVA tenderness Back/Spine/Pelvis Back: no CVA tenderness Cervical Spine: cervical ROM normal and No Cervical spine tenderness Thoracic/Lumbar Spine: thoraco-lumbar ROM normal, No pain with thoraco-lumbar ROM, No thoracic spinal tenderness and No lumbar spinal tenderness Skin Lesions: no lesions Rashes: no rashes Trauma: no lacerations or abrasions Wounds: no wounds Nails: normal Neuro General: patient oriented x3 Cranial nerves: Yes Equal, round and reactive pupils present Cognition (Neuro): normal cognition Gait exam (Neuro): Normal gait present Motor exam (neuro): 5/5 motor strength present throughout Sensory Exam: No Sensory deficit (Neuro) Deep tendon reflexes (DTR's): Right patellar reflex intensity grade: 2+ and Left patellar reflex intensity grade: 2+ Extrem General: Yes normal to inspection and No edema Psych Appearance: grossly normal Affect: normal affect Attitude: cooperative Thought process: Normal thought process present Assessment and Plan Assessment & Plan (1) Annual physical exam: Code(s): Z00.00 - Encounter for general adult medical examination without abnormal findings Plan: 53-year-old?female?presents?for?complete?physical?exam Encouraged?healthy?diet?with?active?lifestyle?and?plenty?of?exercise (2) Essential hypertension: Code(s): I10 - Essential (primary) hypertension Plan: Blood?pressure?is?well?controlled.??Goal?is?less?than?140/90 Continue?current?medications (3) Diabetes type 2, controlled: Code(s): E11.9 - Type 2 diabetes mellitus without complications Plan: A1c?climbed?from?5.8%?to?6.4%. Still?controlled.??Goal?is?less?than?7.0% Continue?current?medication Encouraged?exercise?and?weight?loss.??Work?at?diabetic?diet Eye?exam?was?reschedule?but?this?is?upcoming (4) Screening for cervical cancer: Code(s): Z12.4 - Encounter for screening for malignant neoplasm of cervix Plan: Patient?requests?referral?back?to?her?OBGYN?at?[facility] (5) Screening for breast cancer: Code(s): Z12.39 - Encounter for other screening for malignant neoplasm of breast Plan: Due?for?mammogram?in?February-ordered (6) Screening for colon cancer: Code(s): Z12.11 - Encounter for screening for malignant neoplasm of colon Plan: Cologuard?in?August?2022?was?negative Up-to-date Will?continue?to?screen?every?3?year Orders: Orders MM tomosynthesis screening BI Today Z12.31 - Encounter for screening mammogram for malignant neoplasm of breast Basic Metabolic Panel Today I10 - Essential (primary) hypertension, Z00.00 - Encounter for general adult medical examination without abnormal findings UA and rflx microscopic Today I10 - Essential (primary) hypertension, Z00.00 - Encounter for general adult medical examination without abnormal findings Microalbumin, Random (w Creat) Today I10 - Essential (primary) hypertension Referrals [employer] Referral Z12.4 - Encounter for screening for malignant neoplasm of cervix Coding Level of Care Code Est Pt Level 3 (59212) Est Pt Prev Care 40-64y(08499) Diagnoses Annual physical exam Z00.00 Essential hypertension I10 Diabetes type 2, controlled E11.9 Screening for cervical cancer Z12.4 Screening for breast cancer Z12.39 Screening for colon cancer Z12.11
[2023-12-19 16:10] VITALS: BP 128/66; PULSE 81; O2SAT 99; BMI 30.5
== END 2023-12-19 17:00 ==
PROVIDERS: PCP Family Medicine; Visit Provider Family Medicine
DX: Z00.00 Encounter for general adult medical examination without abnormal findings (principal); I10 Essential (primary) hypertension; E11.9 Type 2 diabetes mellitus without complications; Z12.11 Encounter for screening for malignant neoplasm of colon
CPT/HCPCS: 99396

== ENCOUNTER 2024-02-09 07:35 | Outpatient (REF) | payer BC, SELFPAY | END 2024-02-09 07:36 | disposition home or self-care (01) | LOC: HO.MAMMO 07:35 | PROVIDERS: PCP Family Medicine; Referring Provider Nurse Practitioner Women's Health; Visit Provider Family Medicine | DX: Z12.31 Encounter for screening mammogram for malignant neoplasm of breast (principal) | CPT/HCPCS: 77063; 77067 ==

== ENCOUNTER → 2024-02-09 07:45 | Outpatient (BNV) | payer BC, SELFPAY | PROVIDERS: PCP Family Medicine; Referring Provider Nurse Practitioner Women's Health; Visit Provider Radiology Diagnostic Radiology | DX: Z12.31 Encounter for screening mammogram for malignant neoplasm of breast (principal) | CPT/HCPCS: 77063; 77067 ==

== ENCOUNTER 2024-04-17 16:25 | Outpatient (AMB) | payer BC, SELFPAY ==
[2024-04-17 16:33] VITALS: BP 120/68; PULSE 87; O2SAT 98; BMI 30.4
--- NOTE | 2024-04-17 16:33 | MHC.PC.OV ---
Vital Signs 04/17/24 16:33 Height 5 ft 1 in Weight 161 lb BMI 30.4 BP 120/68 Blood Pressure Location Lt brachial Position Sitting Pulse 87 Pulse Source Pulse Oximeter Pulse Oximetry (%) 98 Oxygen Delivery Method Room Air Intake Visit Reasons: f/u diabetes Intake Note: Patient is here to follow up on her diabetes today. Allergies No Known Allergies Allergy (Verified 04/17/24 16:35) Medication List - Last Reconciled 04/17/24 by Otto Galeas MD atorvastatin 10 mg PO QPM 90 days losartan 50 mg PO DAILY 90 days metoprolol succinate ER 50 mg PO DAILY 90 days pen needle, diabetic (Novofine 32) As directed semaglutide (Ozempic) 0.25 mg (0.368 mL) subcut QWEEK 28 days Tobacco use date assessed: 12/19/23 Dental Screening Dental Screen Date: 12/19/23 HPI f/u diabetes HPI Details 53 y/o female presents to f/u diabetes, hypertension and renal function labs. Last A1c 12/19/23 6.4%. A1c today 04/17/24 5.8%. Blood pressure today 120/68. She is on losartan 50mg, metoprolol 50mg daily. Recent diabetic eye exam showed no diabetic retinopathy. [facility] Medical History Hyperlipidemia, unspecified Essential hypertension Diabetes type 2, controlled Surgical History No pertinent past surgical history Family History Father Cancer Myocardial infarction HTN (hypertension) CVD (cardiovascular disease) Mother HTN (hypertension) Alzheimer's disease Diabetes mellitus Brother No problems noted. Sister No problems noted. Daughter No problems noted. Social History Housing: House Alcohol intake: current Alcohol intake frequency: holidays/special occasions only Patient Tobacco Use Status: Never used Tobacco e-Cigarette/Vaping Use: Never Used Second Hand Smoke Exposure: No service: No Current occupational status: employed Current occupation: [employer] Current occupational exposures/hazards: No Cognitive needs: No Hearing needs: No Vision needs: No Questionnaire Thrive Questionnaire Date Thrive assessed: 12/19/23 MIKE-7 AMB Questionnaire MIKE-7 Date MIKE - 7 assessed: 12/19/23 Source: Developed by Drs. Randy Hudson, Martine Ni, Sujit Castillo and colleagues, with an educational mo from [employer]. Review of Systems Const Denies chills, Denies fatigue, Denies fever(s), Denies headache(s) and Denies weakness ENT Denies dizziness and Denies headache(s) Card Denies dyspnea Resp Denies cough, Denies dyspnea, Denies wheezing and Denies other (shortness of breath) Musc Denies numbness and Denies tingling Neuro Denies dizziness, Denies headache(s), Denies numbness, Denies tingling and Denies weakness Psych Denies anxiety and Denies depression Endo Denies fatigue Aller/Immun Denies wheezing Physical exam (Primary Care) Vital Signs: Last Vital Signs Pulse 87 04/17/24 16:33 BP 120/68 04/17/24 16:33 Pulse Ox 98 04/17/24 16:33 Oxygen Delivery Method Room Air 04/17/24 16:33 BMI result Body Mass Index 30.4 Tobacco/Smoking Status: Tobacco use Status Tobacco use date assessed 12/19/23 04/17/24 16:33 Patient Tobacco Use Status Never used Tobacco 04/17/24 16:33 e-Cigarette/Vaping Use Never Used 04/17/24 16:33 Thrive Assessment: Date of Thrive Assessment Date Thrive assessed 12/19/23 04/17/24 16:33 Const General: well developed; No acute distress Nutritional Appearance: well nourished Orientation/consciousness: patient oriented x3 HENMT Head: Yes normocephalic and Yes atraumatic Eyes General: appearance normal, both eyes and all related structures Pupils: Equal, round and reactive pupils present EOM: EOMs intact bilaterally Resp Effort & Inspection: normal respiratory effort Auscultation: clear to auscultation bilaterally Cardio Rate: regular rate Rhythm: regular rhythm Heart sounds: S1 normal heart sound present, S2 normal heart sound present, no gallops, no murmurs and no rubs Neuro General: patient oriented x3 and gait normal Cranial nerves: Yes Equal, round and reactive pupils present Psych Affect: normal affect Assessment and Plan Assessment & Plan (1) Diabetes type 2, controlled: Code(s): E11.9 - Type 2 diabetes mellitus without complications Plan: A1c?shows?good?control?at?5.8%. Good?control?and?goal?is?less?than?7.0% Continue?Ozempic I?encouraged?a?diet?low?in?sugars?and?starches?and?encouraged?regular?exercise?which?she?has?not?currently?been?doing. Had?her?diabetic?eye?exam?in?February?which?showed?no?diabetic?retinopathy (2) Essential hypertension: Code(s): I10 - Essential (primary) hypertension Plan: Blood?pressure?is?well?controlled.??Goal?is?less?than?140/90 Continue?current?medication?regimen Coding Level of Care Code Est Pt Level 3 (86757) Diagnoses Diabetes type 2, controlled E11.9 Essential hypertension I10
== END 2024-04-17 17:00 | disposition home or self-care (01) ==
PROVIDERS: PCP Family Medicine; Visit Provider Family Medicine
DX: E11.9 Type 2 diabetes mellitus without complications (principal)
CPT/HCPCS: 83036; 99213

== ENCOUNTER 2024-07-22 07:34 | Outpatient (REF) | payer BC, SELFPAY ==
[2024-07-22 10:58] LABS: Anion Gap 12 (12-20); Blood Urea Nitrogen 15 mg/dL (9-16); Calcium 9.8 mg/dL (8.4-10.2); Carbon Dioxide 27 mmol/L (22-29); Chloride 107 mmol/L (96-108); Estimated Glomerular Filt Rate > 60; Glucose Random 110 mg/dL (60-115); Potassium 4.6 mmol/L (3.3-5.1); Sodium 141 mmol/L (135-145)
[2024-07-22 11:12] LABS: Appearance Urine Turbid; Color Urine Yellow; Glucose Urine UA Negative (Negative); Leukocyte Esterase Urine Moderate (2+) (Negative); Nitrite Urine Negative (Negative); Specific Gravity - Urine 1.025 (1.005-1.025); UMIC TRIGGER UA YES; Urine Blood Negative (Negative); Urine Ketones Negative (Negative); Urine Protein Negative (Neg-Trace)
[2024-07-22 11:28] LABS: Bacteria Urine None Seen (None Seen); Hyaline Casts Urine 0-2 /LPF (0-2); RBC Urine 0-2 /HPF (0-2); WBC Urine 0-5 /HPF (0-5)
[2024-07-22 12:53] LABS: Creatinine Urine 184.11 mg/dL; Microalbum/Creatinine Ratio Ur 6.5 ug/mg cr (<30)
== END 2024-07-22 07:35 | disposition home or self-care (01) ==
LOC: HO.10HDL 07:34
PROVIDERS: Visit Provider Family Medicine
DX: Z00.00 Encounter for general adult medical examination without abnormal findings (principal); I10 Essential (primary) hypertension
CPT/HCPCS: 36415; 80048; 81001; 81003; 82043; 82570

== ENCOUNTER 2024-10-07 10:37 | Outpatient (AMB) | payer BC, SELFPAY ==
--- NOTE | 2024-10-07 10:53 | A.OFFPC_ITS ---
Vital Signs 10/07/24 10:55 Height 5 ft 1 in Weight 161 lb BMI 30.4 BP 120/70 Blood Pressure Location Lt brachial Position Sitting Respiration 14 Pulse 81 Pulse Source Pulse Oximeter Pulse Oximetry (%) 100 Oxygen Delivery Method Room Air Intake Visit Reasons: f/u diabetes, hypertension Intake Note: dm and htn follow up Allergies No Known Allergies Allergy (Verified 10/07/24 10:53) Tobacco use date assessed: 12/19/23 Dental Screening Dental Screen Date: 12/19/23 HPI f/u diabetes, hypertension HPI Details 53 y/o female presents to f/u diabetes, HTN. Last A1c 04/17/24 5.8%. A1c today 10/07/24 is 6.1%. She is on ozempic. Blood pressure today 120/70, 81p. She is on losartan 50mg, metoprolol 50mg daily. [facility] Medical History Hyperlipidemia, unspecified Essential hypertension Diabetes type 2, controlled Surgical History No pertinent past surgical history Family History Father Cancer Myocardial infarction HTN (hypertension) CVD (cardiovascular disease) Mother HTN (hypertension) Alzheimer's disease Diabetes mellitus Brother No problems noted. Sister No problems noted. Daughter No problems noted. Social History Housing: House Alcohol intake: current Alcohol intake frequency: holidays/special occasions only Patient Tobacco Use Status: Never used Tobacco e-Cigarette/Vaping Use: Never Used Second Hand Smoke Exposure: No service: No Current occupational status: employed Current occupation: [employer] Current occupational exposures/hazards: No Cognitive needs: No Hearing needs: No Vision needs: No Questionnaire PHQ-9 Over the last 2 weeks, how often have you been bothered by any of the following problems? 1. Little interest or pleasure in doing things: not at all 2. Feeling down, depressed, or hopeless: not at all 3. Trouble falling or staying asleep, or sleeping too much: not at all 4. Feeling tired or having little energy: not at all 5. Poor appetite or overeating: not at all 6. Feeling bad about yourself - or that you are a failure or have let yourself or your family down: not at all 7. Trouble concentrating on things, such as reading the newspaper or watching television: not at all 8. Moving or speaking so slowly that other people could have noticed. Or the opposite - being so fidgety or restless that you have been moving around a lot more than usual: not at all 9. Thoughts that you would be better off or of hurting yourself in some way: not at all Total score: 0 Source: Developed by Drs. Randy Hudson, Martine Ni, Sujit Castillo and colleagues, with an educational mo from [employer]. Thrive Questionnaire Date Thrive assessed: 12/19/23 I am a: Patient What is your living situation today?: I have a steady place to live Within the past 12 months, did the food you bought not last and you didn't have the money to get more?: Never true Within the past 12 months, did you worry whether your food would run out before you got money to buy more?: Never true Do you have trouble paying for medicines?: No Do you have trouble getting transportation to medical appointments?: No Do you have trouble paying your heating and electricity bill?: No Do you have trouble taking care of your child, family member or friend?: No Do you have trouble with day-to-day activities such as bathing, preparing meals, shopping, managing finances, etc.?: No Are you currently unemployed and looking for a job?: Yes Are you interested in more education?: No Please select the resources that you would like help with: None Currently or been in a relationship where the following occur: No concerns reported THRIVE Score: 0 AUDIT C Alcohol Use Questionnaire (AUDIT-C) 1. How often do you have a drink containing alcohol?: 2-4 times a month 2. How many drinks containing alcohol do you have on a typical day when you are drinking?: 1 or 2 3. How often do you have six or more drinks on one occasion?: Never Total Score: 2 MIKE-7 AMB Questionnaire MIKE-7 Date MIKE - 7 assessed: 12/19/23 Feeling nervous, anxious, or on edge: 0 = Not at all Not being able to stop or control worryin = Not at all Worrying too much about different things: 0 = Not at all Trouble relaxin = Not at all Being so restless that it is hard to sit still: 0 = Not at all Becoming easily annoyed or irritable: 1 = Several days Feeling afraid as if something awful might happen: 0 = Not at all Total MIKE-7 score (0-4 normal; 5-9 mild; 10-14 moderate; 15-21 severe): 1 Source: Developed by Drs. Randy Hudson, Martine Ni, Sujit Castillo and colleagues, with an educational mo from [employer]. Review of Systems Const Denies chills, Denies fatigue, Denies fever(s), Denies headache(s) and Denies weakness ENT Denies dizziness and Denies headache(s) Card Denies chest pain, Denies lightheadedness, Denies dyspnea and Denies other (Palpitations) Resp Denies cough, Denies dyspnea, Denies wheezing and Denies other ( shortness of breath) Musc Denies numbness and Denies tingling Neuro Denies dizziness, Denies headache(s), Denies numbness, Denies tingling, Denies paresthesias and Denies weakness Psych Denies anxiety and Denies depression Endo Denies fatigue Aller/Immun Denies wheezing Physical exam (Primary Care) Vital Signs: Last Vital Signs Pulse 81 10/07/24 10:55 Resp 14 10/07/24 10:55 BP 120/70 10/07/24 10:55 Pulse Ox 100 10/07/24 10:55 Oxygen Delivery Method Room Air 10/07/24 10:55 BMI result Body Mass Index 30.4 Tobacco/Smoking Status: Tobacco use Status Tobacco use date assessed 12/19/23 10/07/24 10:57 Patient Tobacco Use Status Never used Tobacco 10/07/24 10:57 e-Cigarette/Vaping Use Never Used 10/07/24 10:57 PHQ-9: PHQ-9 Score PHQ-9: Total score 0 10/07/24 11:29 Thrive Assessment: Date of Thrive Assessment Date Thrive assessed 12/19/23 10/07/24 10:57 Currently or been in a relationship where the following occur: No concerns reported Const General: no acute distress and well developed Nutritional Appearance: well nourished Orientation/consciousness: patient oriented x3 HENMT Head: Yes normocephalic and Yes atraumatic Eyes General: appearance normal, both eyes and all related structures Pupils: Equal, round and reactive pupils present EOM: EOMs intact bilaterally Resp Effort & Inspection: normal respiratory effort Auscultation: clear to auscultation bilaterally Cardio Rate: regular rate Rhythm: regular rhythm Heart sounds: S1 normal heart sound present, S2 normal heart sound present, no gallops, no murmurs and no rubs Neuro General: patient oriented x3 and gait normal Cranial nerves: Yes Equal, round and reactive pupils present Psych Affect: normal affect Coding Level of Care Code Est Pt Level 3 (24266) Diagnoses Essential hypertension I10 Diabetes type 2, controlled E11.9 Assessment & Plan Assessment & Plan (1) Essential hypertension: Code(s): I10 - Essential (primary) hypertension Category: Medical Plan: Blood?pressure?is?controlled.??Goal?is?less?than?140/90 Continue?current?medications (2) Diabetes type 2, controlled: Code(s): E11.9 - Type 2 diabetes mellitus without complications Category: Medical Plan: A1c?6.1%?on?Ozempic?0.25?mg?weekly Good?co ntrol.??Goal?is?less?than?7.0%?and?we?discussed?working?yet?keeping?below?6.5%?o r?lower. Eye?exam?in?February?showed?no?diabetic?retinopathy; up-to-date Continue?current?medication?regimen Medications: Changed From semaglutide (Ozempic) for 4 weeks 0.25 mg (0.368 mL) subcut QWEEK 28 days 1.6 mL 2RF E11.9 - Type 2 diabetes mellitus without complications To semaglutide (Ozempic) for 4 weeks 0.5 mg (0.736 mL) subcut QWEEK 28 days 2.944 mL 2RF E11.9 - Type 2 diabetes mellitus without complications
[2024-10-07 10:55] VITALS: BP 120/70; PULSE 81; RESP 14; O2SAT 100; BMI 30.4
== END 2024-10-07 11:39 | disposition home or self-care (01) ==
PROVIDERS: PCP Family Medicine; Visit Provider Family Medicine
DX: I10 Essential (primary) hypertension (principal); E11.9 Type 2 diabetes mellitus without complications

== ENCOUNTER → 2024-10-07 10:37 | Outpatient (BNVA) | payer BC, SELFPAY | PROVIDERS: PCP Family Medicine; Visit Provider Family Medicine | DX: I10 Essential (primary) hypertension (principal); E11.9 Type 2 diabetes mellitus without complications; Z79.85 Long-term (current) use of injectable non-insulin antidiabetic drugs; Z79.899 Other long term (current) drug therapy | CPT/HCPCS: 83036; 96127 ==

== ENCOUNTER 2025-01-07 15:28 | Outpatient (AMB) | payer BC, SELFPAY ==
--- NOTE | 2025-01-07 16:02 | MHC.PC.OV ---
Vital Signs 01/07/25 16:09 Height 5 ft 1 in Weight 164 lb 8 oz BMI 31.1 BP 130/80 Blood Pressure Location Rt brachial Position Sitting Respiration 14 Pulse 78 Pulse Source Pulse Oximeter Temp 98.7 F Temp Source Oral Pulse Oximetry (%) 95 Oxygen Delivery Method Room Air Intake Visit Reasons: f/u diabetes, hypertension Intake Note: dm and htn follow up [employer] Required: No Allergies No Known Allergies Allergy (Verified 01/07/25 16:05) Medication List - Last Reconciled 01/07/25 by Otto Galeas MD atorvastatin 10 mg PO QPM 90 days losartan 50 mg PO DAILY 90 days metformin 500 mg PO DAILY 30 days metoprolol succinate ER 50 mg PO DAILY 90 days pen needle, diabetic (Novofine 32) As directed semaglutide (Ozempic) 0.5 mg (0.736 mL) subcut QWEEK 28 days Tobacco use date assessed: 12/19/23 Dental Screening Dental Screen Date: 12/19/23 HPI f/u diabetes, hypertension HPI Details 54 y/o female presents to f/u DM, HTN. BP today 130/80, 78p. She is on losartan, metoprolol. Last A1c 10/07/24 6.1%. She notes she has an upcoming appt. with her eye doctor for a diabetic eye exam. A1c today 01/07/25 6.1%. She notes she has had a gap in ozempic. [facility] Medical History Hyperlipidemia, unspecified Essential hypertension Diabetes type 2, controlled Surgical History No pertinent past surgical history Family History Father Cancer Myocardial infarction HTN (hypertension) CVD (cardiovascular disease) Mother HTN (hypertension) Alzheimer's disease Diabetes mellitus Brother No problems noted. Sister No problems noted. Daughter No problems noted. Social History Housing: House Alcohol intake: current Alcohol intake frequency: holidays/special occasions only Patient Tobacco Use Status: Never used Tobacco e-Cigarette/Vaping Use: Never Used Second Hand Smoke Exposure: No service: No Current occupational status: employed Current occupation: [employer] Current occupational exposures/hazards: No Cognitive needs: No Hearing needs: No Vision needs: No Questionnaire PHQ-9 Over the last 2 weeks, how often have you been bothered by any of the following problems? 1. Little interest or pleasure in doing things: not at all 2. Feeling down, depressed, or hopeless: not at all 3. Trouble falling or staying asleep, or sleeping too much: not at all 4. Feeling tired or having little energy: not at all 5. Poor appetite or overeating: not at all 6. Feeling bad about yourself - or that you are a failure or have let yourself or your family down: not at all 7. Trouble concentrating on things, such as reading the newspaper or watching television: not at all 8. Moving or speaking so slowly that other people could have noticed. Or the opposite - being so fidgety or restless that you have been moving around a lot more than usual: not at all 9. Thoughts that you would be better off or of hurting yourself in some way: not at all Total score: 0 Source: Developed by Drs. Randy Hudson, Martine Ni, Sujit Castillo and colleagues, with an educational mo from [employer]. Thrive Questionnaire Date Thrive assessed: 12/19/23 I am a: Patient What is your living situation today?: I have a steady place to live Within the past 12 months, did the food you bought not last and you didn't have the money to get more?: Never true Within the past 12 months, did you worry whether your food would run out before you got money to buy more?: Never true Do you have trouble paying for medicines?: No Do you have trouble getting transportation to medical appointments?: No Do you have trouble paying your heating and electricity bill?: No Do you have trouble taking care of your child, family member or friend?: No Do you have trouble with day-to-day activities such as bathing, preparing meals, shopping, managing finances, etc.?: No Are you currently unemployed and looking for a job?: No Are you interested in more education?: No Please select the resources that you would like help with: None Currently or been in a relationship where the following occur: No concerns reported THRIVE Score: 0 AUDIT C Alcohol Use Questionnaire (AUDIT-C) 1. How often do you have a drink containing alcohol?: 2-4 times a month 2. How many drinks containing alcohol do you have on a typical day when you are drinking?: 1 or 2 3. How often do you have six or more drinks on one occasion?: Never Total Score: 2 MIKE-7 AMB Questionnaire MIKE-7 Date MIKE - 7 assessed: 12/19/23 Feeling nervous, anxious, or on edge: 0 = Not at all Not being able to stop or control worryin = Not at all Worrying too much about different things: 0 = Not at all Trouble relaxin = Not at all Being so restless that it is hard to sit still: 0 = Not at all Becoming easily annoyed or irritable: 0 = Not at all Feeling afraid as if something awful might happen: 0 = Not at all Total MIKE-7 score (0-4 normal; 5-9 mild; 10-14 moderate; 15-21 severe): 0 Source: Developed by Drs. Randy Hudson, Martine Ni, Sujit Castillo and colleagues, with an educational mo from [employer]. Review of Systems Const Denies chills, Denies fatigue, Denies fever(s), Denies headache(s) and Denies weakness ENT Denies dizziness and Denies headache(s) Card Denies dyspnea Resp Denies cough, Denies dyspnea, Denies wheezing and Denies other (shortness of breath) Musc Denies numbness and Denies tingling Neuro Denies dizziness, Denies headache(s), Denies numbness, Denies tingling and Denies weakness Psych Denies anxiety and Denies depression Endo Denies fatigue Aller/Immun Denies wheezing Physical exam (Primary Care) Vital Signs: Last Vital Signs Temp 98.7 F 01/07/25 16:09 Pulse 78 01/07/25 16:09 Resp 14 01/07/25 16:09 BP 130/80 01/07/25 16:09 Pulse Ox 95 01/07/25 16:09 Oxygen Delivery Method Room Air 01/07/25 16:09 BMI result Body Mass Index 31.1 Tobacco/Smoking Status: Tobacco use Status Tobacco use date assessed 12/19/23 01/07/25 16:04 Patient Tobacco Use Status Never used Tobacco 01/07/25 16:04 e-Cigarette/Vaping Use Never Used 01/07/25 16:04 PHQ-9: PHQ-9 Score PHQ-9: Total score 0 01/07/25 16:04 Thrive Assessment: Date of Thrive Assessment Date Thrive assessed 12/19/23 01/07/25 16:04 Currently or been in a relationship where the following occur: No concerns reported Const General: well developed; No acute distress Nutritional Appearance: well nourished Orientation/consciousness: patient oriented x3 [facility] Head: Yes normocephalic and Yes atraumatic Eyes General: appearance normal, both eyes and all related structures Pupils: Equal, round and reactive pupils present EOM: EOMs intact bilaterally Resp Effort & Inspection: normal respiratory effort Auscultation: clear to auscultation bilaterally Cardio Rate: regular rate Rhythm: regular rhythm Heart sounds: S1 normal heart sound present, S2 normal heart sound present, no gallops, no murmurs and no rubs Neuro General: patient oriented x3 and gait normal Cranial nerves: Yes Equal, round and reactive pupils present Psych Affect: normal affect Results AMB Hemoglobin A1c AMB Hemoglobin A1c 6.1 % Last Edit by AMADO Le on 01/07/25 16:36 Coding Level of Care Code Est Pt Level 3 (33997) Diagnoses Diabetes type 2, controlled E11.9 Essential hypertension I10 Assessment & Plan Assessment & Plan (1) Diabetes type 2, controlled: Code(s): E11.9 - Type 2 diabetes mellitus without complications Category: Medical Plan: A1c?remains?6.1%. She?has?had?a?gap?in?her?Ozempic?due?to?requirement?of?prior?authorization?but?she?can?pick?this?up?today?as?it?is?now?available.??She?has?been?taking?metformin?while?she?has?not?been?able?take?the?Ozempic. She?can?discontinue?metformin?once?she?is?started?Ozempic Continue?to?work?at?a?diet?low?in?sugars?and?starches.??Continue?weight?loss She?is?still?up-to-date?with?her?eye?exam?though?will?be?due?next?month.??Reminded?her?to?call?her?eye?doctor?for?an?appointment (2) Essential hypertension: Code(s): I10 - Essential (primary) hypertension Category: Medical Plan: Blood?pressure?is?controlled.??Goal?is?less?than?140/90 Continue?medication?regimen Orders: Orders Complete Blood Count Auto Diff Today Z00.00 - Encounter for general adult medical examination without abnormal findings Lipid Panel Today Z00.00 - Encounter for general adult medical examination without abnormal findings Comprehensive [place]. Panel Fast Today Z00.00 - Encounter for general adult medical examination without abnormal findings Microalbumin, Random (w Creat) Today I10 - Essential (primary) hypertension TSH reflex Free T4 Today Z00.00 - Encounter for general adult medical examination without abnormal findings UA and rflx microscopic Today Z00.00 - Encounter for general adult medical examination without abnormal findings
[2025-01-07 16:09] VITALS: BP 130/80; PULSE 78; RESP 14; TEMP 37.1; O2SAT 95; BMI 31.1
== END 2025-01-07 16:38 | disposition home or self-care (01) ==
PROVIDERS: PCP Family Medicine; Visit Provider Family Medicine
DX: E11.9 Type 2 diabetes mellitus without complications (principal); I10 Essential (primary) hypertension

== ENCOUNTER → 2025-01-07 15:28 | Outpatient (BNVA) | payer BC, SELFPAY | PROVIDERS: PCP Family Medicine; Visit Provider Family Medicine | DX: E11.9 Type 2 diabetes mellitus without complications (principal); I10 Essential (primary) hypertension; Z79.899 Other long term (current) drug therapy | CPT/HCPCS: 83036; 96127 ==

== ENCOUNTER 2025-02-13 07:28 | Outpatient (REF) | payer BC, SELFPAY | END 2025-02-13 07:29 | disposition home or self-care (01) | LOC: HO.MAMMO 07:28 | PROVIDERS: PCP Family Medicine; Visit Provider Family Medicine | DX: Z12.31 Encounter for screening mammogram for malignant neoplasm of breast (principal) | CPT/HCPCS: 77063; 77067 ==

== ENCOUNTER → 2025-02-13 07:45 | Outpatient (BNV) | payer BC, SELFPAY | PROVIDERS: PCP Family Medicine; Visit Provider Internal Medicine | DX: Z12.31 Encounter for screening mammogram for malignant neoplasm of breast (principal) | CPT/HCPCS: 77063; 77067 ==

== ENCOUNTER 2025-03-18 11:48 | Outpatient (REF) | payer BC, SELFPAY ==
--- NOTE | ~2025-03-18 | US_ITS ---
EXAMINATION: MM DIAGNOSTIC DIGITAL BREAST TOMOSYNTHESIS, RIGHT Limited right breast ultrasound. CLINICAL INFORMATION: Call back from screening for questioned architectural distortion in the right retroareolar region. COMPARISON: Mammography: [facility] on PACS. TECHNIQUE: Digital breast tomosynthesis is performed in both the craniocaudal and mediolateral oblique views along with computer-aided detection (CAD). Synthesized 2D images are generated from the tomosynthesis. FINDINGS: The breasts are heterogeneously dense, which may obscure small masses (ACR BI-RADS breast composition Category c). The previously seen asymmetry in the retroareolar region does not persist on additional imaging projections and likely represented overlapping breast tissue. There are no significant masses, abnormal calcifications, or other abnormalities. Targeted color Doppler ultrasound scanning in the right retroareolar region demonstrates a few ectatic ducts and normal fibroglandular breast tissue. There is no sonographic abnormality. US/US breast RT limited mamm only IMPRESSION: Right: Benign. ASSESSMENT: BI-RADS BI-RADS 2 - Benign Findings RECOMMENDATION: 1 year F/U Results were provided to the patient at time of visit by the technologist. This patient's information was entered into a reminder system with a target due date for their next mammogram. Electronically signed by: Nu Nation DO 03/18/2025 12:46 PM EDT
== END 2025-03-18 11:49 | disposition home or self-care (01) ==
LOC: HO.MAMMO 11:48
PROVIDERS: PCP Family Medicine; Visit Provider Family Medicine
DX: N64.89 Other specified disorders of breast (principal)
CPT/HCPCS: 76642; 77061; 77065

== ENCOUNTER → 2025-03-18 12:00 | Outpatient (BNV) | payer BC, SELFPAY | PROVIDERS: PCP Family Medicine; Visit Provider Internal Medicine | DX: R92.8 Other abnormal and inconclusive findings on diagnostic imaging of breast (principal) | CPT/HCPCS: 76642; 77061; 77065 ==

== ENCOUNTER 2025-04-07 07:56 | Outpatient (REF) | payer BC, SELFPAY ==
[2025-04-07 09:45] LABS: MANUAL DIFF FLAG NO
[2025-04-07 10:16] LABS: Basophils Absolute Auto 0.1 X10*3/uL (0.0-0.2); Basophils Percent Auto 0.5 % (0-2); Eosinophils Absolute Auto 0.3 X10*3/uL (0.0-0.4); Eosinophils Percent Auto 2.8 % (0-4); Hematocrit 41.2 % (37.0-47.0); Hemoglobin 13.9 g/dl (12.0-16.0); Imm Gran Abs Auto 0.03 X10*3/uL (0.00-0.03); Imm Gran Pct Auto 0.3 % (0.0-0.4); Lymphocytes Absolute Auto 3.1 X10*3/uL (1.2-4.9); Lymphocytes Percent Auto 30.8 % (20-40); Mean Corpuscular HGB Conc 33.7 g/dl (31.0-35.0); Mean Corpuscular Hemoglobin 29.4 pg (27.0-33.0); Mean Corpuscular Volume 87.1 fL (80.0-98.0); Mean Platelet Volume 9.2 fL (9.4-12.3); Monocytes Absolute Auto 0.8 X10*3/uL (0.1-1.2); Monocytes Percent Auto 7.8 % (2-11); Neutrophils Absolute Auto 5.8 x10*3/uL (2.0-8.3); Neutrophils Percent Auto 57.8 % (45-73); Platelet Count 348 X10*3/uL (160-400); Red Blood Count 4.73 X10*6/uL (4.20-5.50); Red Cell Distribution Width 12.8 % (11.0-16.0)
[2025-04-07 10:22] LABS: Appearance Urine Hazy; Color Urine Yellow; Glucose Urine UA Negative (Negative); Leukocyte Esterase Urine Negative (Negative); Nitrite Urine Negative (Negative); Specific Gravity - Urine >= 1.030 (1.005-1.025); Urine Blood Negative (Negative); Urine Ketones Negative (Negative); Urine Protein Negative (Neg-Trace)
[2025-04-07 10:41] LABS: Alanine Aminotransferase 15 U/L (0-31); Albumin Level 4.5 g/dL (3.5-5.0); Alkaline Phosphatase 114 U/L (39-117); Anion Gap 12 (12-20); Aspartate Amino Transferase 24 U/L (5-31); Bilirubin Total 0.5 mg/dL (0.0-1.0); Blood Urea Nitrogen 14 mg/dL (9-16); Calcium 9.9 mg/dL (8.4-10.2); Carbon Dioxide 28 mmol/L (22-29); Chloride 108 mmol/L (96-108); Cholesterol 156 mg/dL (<200); Estimated Glomerular Filt Rate > 60; Glucose Fasting 118 mg/dL (60-99); HDL Cholesterol 55 mg/dL (>40); LDL Cholesterol Calculated 81 mg/dL (<100); Potassium 4.9 mmol/L (3.3-5.1); Sodium 143 mmol/L (135-145); Total Protein 7.5 g/dL (6.5-8.0); Triglycerides 104 mg/dL (<150)
[2025-04-07 21:54] LABS: Creatinine Urine 187.39 mg/dL; Microalbum/Creatinine Ratio Ur 9.6 ug/mg cr (<30)
== END 2025-04-07 07:57 | disposition home or self-care (01) ==
LOC: HO.10HDL 07:56
PROVIDERS: Visit Provider Family Medicine
DX: Z00.00 Encounter for general adult medical examination without abnormal findings (principal); I10 Essential (primary) hypertension
CPT/HCPCS: 36415; 80053; 80061; 81003; 82043; 82570; 84443; 85025

== ENCOUNTER 2025-04-15 15:35 | Outpatient (AMB) | payer BC, SELFPAY ==
--- NOTE | 2025-04-15 15:49 | A.OFFPC_ITS ---
Vital Signs 04/15/25 15:56 Height 5 ft 1 in Weight 161 lb 4 oz BMI 30.5 BP 110/78 Blood Pressure Location Lt brachial Position Sitting Respiration 14 Pulse 86 Pulse Source Pulse Oximeter Temp 98.3 F Temp Source Oral Pulse Oximetry (%) 100 Oxygen Delivery Method Room Air Intake Visit Reasons: f/u diabetes, HTN Intake Note: patient is scheduled to follow up for dm and htn Vp Platforms Required: No Allergies No Known Allergies Allergy (Verified 04/15/25 15:53) Medication List - Last Reconciled 04/15/25 by Otto Galeas MD atorvastatin 10 mg PO QPM 90 days losartan 50 mg PO DAILY 90 days metoprolol succinate ER 50 mg PO DAILY 90 days pen needle, diabetic (Novofine 32) As directed semaglutide (Ozempic) 0.5 mg (0.736 mL) subcut QWEEK 28 days Tobacco use date assessed: 12/19/23 Dental Screening Dental Screen Date: 12/19/23 HPI f/u diabetes, HTN HPI Details 54 y/o female presents to f/u diabetes, HTN. A1c today 5.9%. She has discontinued her metformin. She is on ozempic 0.5mg. Blood pressure today 110/78, 86p. She is on losartan 50mg, metoprolol 50mg daily. [facility] Medical History Hyperlipidemia, unspecified Essential hypertension Diabetes type 2, controlled Surgical History No pertinent past surgical history Family History Father Cancer Myocardial infarction HTN (hypertension) CVD (cardiovascular disease) Mother HTN (hypertension) Alzheimer's disease Diabetes mellitus Brother No problems noted. Sister No problems noted. Daughter No problems noted. Social History Housing: House Alcohol intake: current Alcohol intake frequency: holidays/special occasions only Patient Tobacco Use Status: Never used Tobacco e-Cigarette/Vaping Use: Never Used Second Hand Smoke Exposure: No service: No Current occupational status: employed Current occupation: [employer] Current occupational exposures/hazards: No Cognitive needs: No Hearing needs: No Vision needs: No Questionnaire Thrive Questionnaire Date Thrive assessed: 01/07/25 I am a: Patient What is your living situation today?: I have a steady place to live Within the past 12 months, did the food you bought not last and you didn't have the money to get more?: Never true Within the past 12 months, did you worry whether your food would run out before you got money to buy more?: Never true Do you have trouble paying for medicines?: No Do you have trouble getting transportation to medical appointments?: No Do you have trouble paying your heating and electricity bill?: No Do you have trouble taking care of your child, family member or friend?: No Do you have trouble with day-to-day activities such as bathing, preparing meals, shopping, managing finances, etc.?: No Are you currently unemployed and looking for a job?: No Are you interested in more education?: No Please select the resources that you would like help with: None Currently or been in a relationship where the following occur: No concerns re ported THRIVE Score: 0 MIKE-7 AMB Questionnaire MIKE-7 Date MIKE - 7 assessed: 12/19/23 Source: Developed by Drs. Randy Hudson, Martine Ni, Sujit Castillo and colleagues, with an educational mo from [employer]. Review of Systems Const Denies chills, Denies fatigue, Denies fever(s), Denies headache(s) and Denies weakness ENT Denies dizziness and Denies headache(s) Card Denies dyspnea Resp Denies cough, Denies dyspnea, Denies wheezing and Denies other (shortness of breath) Musc Denies numbness and Denies tingling Neuro Denies dizziness, Denies headache(s), Denies numbness, Denies tingling and Denies weakness Psych Denies anxiety and Denies depression Endo Denies fatigue Aller/Immun Denies wheezing Physical exam (Primary Care) Vital Signs: Last Vital Signs Temp 98.3 F 04/15/25 15:56 Pulse 86 04/15/25 15:56 Resp 14 04/15/25 15:56 BP 110/78 04/15/25 15:56 Pulse Ox 100 04/15/25 15:56 Oxygen Delivery Method Room Air 04/15/25 15:56 BMI result Body Mass Index 30.5 Tobacco/Smoking Status: Tobacco use Status Tobacco use date assessed 12/19/23 04/15/25 15:57 Patient Tobacco Use Status Never used Tobacco 04/15/25 15:57 e-Cigarette/Vaping Use Never Used 04/15/25 15:57 Thrive Assessment: Date of Thrive Assessment Date Thrive assessed 01/07/25 04/15/25 15:57 Currently or been in a relationship where the following occur: No concerns reported Const General: well developed; No acute distress Nutritional Appearance: well nourished Orientation/consciousness: patient oriented x3 HENMT Head: Yes normocephalic and Yes atraumatic Eyes General: appearance normal, both eyes and all related structures Pupils: Equal, round and reactive pupils present EOM: EOMs intact bilaterally Resp Effort & Inspection: normal respiratory effort Auscultation: clear to auscultation bilaterally Cardio Rate: regular rate Rhythm: regular rhythm Heart sounds: S1 normal heart sound present, S2 normal heart sound present, no gallops, no murmurs and no rubs Neuro General: patient oriented x3 and gait normal Cranial nerves: Yes Equal, round and reactive pupils present Psych Affect: normal affect Coding Level of Care Code Est Pt Level 3 (89141) Diagnoses Diabetes type 2, controlled E11.9 Essential hypertension I10 Assessment & Plan Assessment & Plan (1) Diabetes type 2, controlled: Code(s): E11.9 - Type 2 diabetes mellitus without complications Category: Medical Plan: A1c?5.9%.??Good?control.??Goal?is?less?than?7.0% Continue?Ozempic Patient?says?she?has?an?appointment?for?her?diabetic?eye?exam?later?in?the?year (2) Essential hypertension: Code(s): I10 - Essential (primary) hypertension Category: Medical Plan: Blood?pressure?is?controlled.??Goal?is?less?than?140/90 Continue?current?medications
[2025-04-15 15:56] VITALS: BP 110/78; PULSE 86; RESP 14; TEMP 36.8; O2SAT 100; BMI 30.5
== END 2025-04-15 16:25 | disposition home or self-care (01) ==
LOC: HO.HMCFM 15:36
PROVIDERS: PCP Family Medicine; Visit Provider Family Medicine
DX: E11.9 Type 2 diabetes mellitus without complications (principal); I10 Essential (primary) hypertension

== ENCOUNTER → 2025-04-15 15:35 | Outpatient (BNVA) | payer BC, SELFPAY | PROVIDERS: PCP Family Medicine; Visit Provider Family Medicine | DX: Z13.89 Encounter for screening for other disorder (principal) ==

== ENCOUNTER 2025-07-02 15:30 | Outpatient (AMB) | payer BC, SELFPAY | END 2025-07-02 15:36 | disposition home or self-care (01) | LOC: HO.HMGAL 15:30 | PROVIDERS: PCP Family Medicine; Visit Provider Registered Nurse Emergency | DX: J30.89 Other allergic rhinitis (principal) | CPT/HCPCS: 95117; 95165 ==

== ENCOUNTER 2025-08-11 15:22 | Outpatient (AMB) | payer BC, SELFPAY ==
--- NOTE | 2025-08-11 15:29 | MHC.PC.OV ---
Vital Signs 08/11/25 15:33 Height 5 ft 1 in Weight 159 lb 2 oz BMI 30.1 BP 130/72 Blood Pressure Location Rt brachial Position Sitting Respiration 13 Pulse 96 Pulse Source Pulse Oximeter Temp 97.2 F Temp Source Oral Pulse Oximetry (%) 96 Oxygen Delivery Method Room Air Intake Visit Reasons: f/u diabetes, HTN - see comments Intake Note: Follow up dm and htn. Potato Chip Maker Required: No Allergies No Known Allergies Allergy (Verified 08/11/25 15:30) Medication List - Last Reconciled 08/11/25 by Otto Galeas MD atorvastatin 10 mg PO QPM 90 days losartan 50 mg PO DAILY 90 days metoprolol succinate ER 50 mg PO DAILY 90 days pen needle, diabetic (Novofine 32) As directed semaglutide (Ozempic) 0.5 mg (0.736 mL) subcut QWEEK 28 days Tobacco use date assessed: 08/11/25 Dental Screening Dental Screen Date: 08/11/25 Did you have a dental visit in the last 12 months?: Yes Did you have a dental problem in the last 6 months where you did not have access to dental care?: No Was dental information given to patient?: Patient has dentist HPI f/u diabetes, HTN - see comments HPI Details 54 y/o female presents to f/u diabetes, HTN. Blood pressure today 130/72, 96p. She is on losartan 50mg, metoprolol 50mg daily. A1c today 5.7%. She is on Ozempic 0.5mg weekly. [facility] Medical History Hyperlipidemia, unspecified Essential hypertension Diabetes type 2, controlled Surgical History No pertinent past surgical history Family History Father Cancer Myocardial infarction HTN (hypertension) CVD (cardiovascular disease) Mother HTN (hypertension) Alzheimer's disease Diabetes mellitus Brother No problems noted. Sister No problems noted. Daughter No problems noted. Social History Housing: House Alcohol intake: current Alcohol intake frequency: holidays/special occasions only Patient Tobacco Use Status: Never used Tobacco e-Cigarette/Vaping Use: Never Used Second Hand Smoke Exposure: No service: No Current occupational status: employed Current occupation: banking Current occupational exposures/hazards: No Cognitive needs: No Hearing needs: No Vision needs: No Questionnaire Thrive Questionnaire Date Thrive assessed: 08/11/25 I am a: Patient What is your living situation today?: I have a steady place to live Within the past 12 months, did the food you bought not last and you didn't have the money to get more?: Never true Within the past 12 months, did you worry whether your food would run out before you got money to buy more?: Never true Do you have trouble paying for medicines?: No Do you have trouble getting transportation to medical appointments?: No Do you have trouble paying your heating and electricity bill?: No Do you have trouble taking care of your child, family member or friend?: No Do you have trouble with day-to-day activities such as bathing, preparing meals, shopping, managing finances, etc.?: No Are you currently unemployed and looking for a job?: No Are you interested in more education?: No Please select the resources that you would like help with: None Currently or been in a relationship where the following occur: No concerns reported THRIVE Score: 0 MIKE-7 AMB Questionnaire MIKE-7 Date MIKE - 7 assessed: 08/11/25 Source: Developed by Drs. Randy Hudson, Martine Ni, Sujit Castillo and colleagues, with an educational mo from [employer]. Review of Systems Const Denies chills, Denies fatigue, Denies fever(s), Denies headache(s) and Denies weakness ENT Denies dizziness and Denies headache(s) Card Denies dyspnea Resp Denies cough, Denies dyspnea, Denies wheezing and Denies other (shortness of breath) Musc Denies numbness and Denies tingling Neuro Denies dizziness, Denies headache(s), Denies numbness, Denies tingling and Denies weakness Psych Denies anxiety and Denies depression Endo Denies fatigue Aller/Immun Denies wheezing Physical exam (Primary Care) Vital Signs: Last Vital Signs Temp 97.2 F 08/11/25 15:33 Pulse 96 08/11/25 15:33 Resp 13 08/11/25 15:33 BP 130/72 08/11/25 15:33 Pulse Ox 96 08/11/25 15:33 Oxygen Delivery Method Room Air 08/11/25 15:33 BMI result Body Mass Index 30.1 Tobacco/Smoking Status: Tobacco use Status Tobacco use date assessed 08/11/25 08/11/25 15:32 Patient Tobacco Use Status Never used Tobacco 08/11/25 15:32 e-Cigarette/Vaping Use Never Used 08/11/25 15:32 Thrive Assessment: Date of Thrive Assessment Date Thrive assessed 08/11/25 08/11/25 15:32 Currently or been in a relationship where the following occur: No concerns reported Const General: well developed; No acute distress Nutritional Appearance: well nourished Orientation/consciousness: patient oriented x3 HENMT Head: Yes normocephalic and Yes atraumatic Eyes General: appearance normal, both eyes and all related structures Pupils: Equal, round and reactive pupils present EOM: EOMs intact bilaterally Resp Effort & Inspection: normal respiratory effort Auscultation: clear to auscultation bilaterally Cardio Rate: regular rate Rhythm: regular rhythm Heart sounds: S1 normal heart sound present, S2 normal heart sound present, no gallops, no murmurs and no rubs Neuro General: patient oriented x3 and gait normal Cranial nerves: Yes Equal, round and reactive pupils present Psych Affect: normal affect Results AMB Hemoglobin A1c AMB Hemoglobin A1c 5.7 % Last Edit by Carmita Bridges MA on 08/11/25 15:43 Results Reviewed Results Reviewed: Laboratory Last Values Hgb A1c (Clinic) 5.7 % (4.0-6.0) 08/11/25 15:38 Coding Level of Care Code Est Pt Level 4 (34559) Diagnoses Diabetes type 2, controlled E11.9 Essential hypertension I10 Obesity E66.9 Assessment & Plan Assessment & Plan (1) Diabetes type 2, controlled: Code(s): E11.9 - Type 2 diabetes mellitus without complications Category: Medical Plan: A1c 5.7%. Good control. Goal is less than 7.0% Continue current medication Patient says she has an appointment scheduled for her diabetic eye exam. (2) Essential hypertension: Code(s): I10 - Essential (primary) hypertension Category: Medical Plan: Blood pressure is controlled. Goal is less than 140/90 Continue current medication (3) Obesity: Code(s): E66.9 - Obesity, unspecified Category: Medical Plan: Weight continues to decrease gradually; 161 lb last visit and 159 lb today She is taking Ozempic as prescribed Declined increase in dose Continue current medication and work at healthy habits including healthy diet and exercise. Will continue monitor Orders: Orders AMB Hemoglobin A1c Today E11.9 - Type 2 diabetes mellitus without complications, Z13.9 - Encounter for screening, unspecified Medications: Refilled semaglutide (Ozempic) for 4 weeks 0.5 mg (0.736 mL) subcut QWEEK 3 mL 4RF 28 days E11.9 - Type 2 diabetes mellitus without complications
[2025-08-11 15:33] VITALS: BP 130/72; PULSE 96; RESP 13; TEMP 36.2; O2SAT 96; BMI 30.1
== END 2025-08-11 15:58 | disposition home or self-care (01) ==
LOC: HO.HMCFM 15:23
PROVIDERS: PCP Family Medicine; Visit Provider Family Medicine
DX: E11.9 Type 2 diabetes mellitus without complications (principal); I10 Essential (primary) hypertension; E66.9 Obesity, unspecified; Z68.30 Body mass index [BMI] 30.0-30.9, adult

== ENCOUNTER → 2025-08-11 15:22 | Outpatient (BNVA) | payer BC, SELFPAY | PROVIDERS: PCP Family Medicine; Visit Provider Family Medicine | DX: E11.9 Type 2 diabetes mellitus without complications (principal); I10 Essential (primary) hypertension; E66.9 Obesity, unspecified; Z68.30 Body mass index [BMI] 30.0-30.9, adult; Z79.899 Other long term (current) drug therapy | CPT/HCPCS: 83036 ==

== ENCOUNTER 2025-08-13 08:27 | Outpatient (AMB) | payer BC, SELFPAY | END 2025-08-13 08:36 | disposition home or self-care (01) | PROVIDERS: PCP Family Medicine; Visit Provider Registered Nurse Emergency | DX: J30.89 Other allergic rhinitis (principal) | CPT/HCPCS: 95117; 95165 ==

== ENCOUNTER 2025-09-11 11:33 | Outpatient (AMB) | payer BC, SELFPAY ==
--- NOTE | 2025-09-11 11:48 | MHC.PC.OV ---
Vital Signs 09/11/25 12:00 Height 5 ft 1 in Weight 160 lb 2 oz BMI 30.3 BP 122/74 Blood Pressure Location Rt brachial Position Sitting Respiration 16 Pulse 85 Pulse Source Pulse Oximeter Temp 98.6 F Temp Source Oral Pulse Oximetry (%) 99 Oxygen Delivery Method Room Air Intake Visit Reasons: sciatica issues Intake Note: patient here c/o left side sciatic nerve pain for about 2 days ago Mid Level Developer Required: No Is last menstrual period known: No Post menopausal: No Patient : No Allergies No Known Allergies Allergy (Verified 09/11/25 11:59) Medication List - Last Reconciled 09/11/25 by Otto Galeas MD atorvastatin 10 mg PO QPM 90 days losartan 50 mg PO DAILY 90 days metoprolol succinate ER 50 mg PO DAILY 90 days pen needle, diabetic (Novofine 32) As directed semaglutide (Ozempic) 0.5 mg (0.736 mL) subcut QWEEK 28 days Tobacco use date assessed: 09/11/25 Dental Screening Dental Screen Date: 09/11/25 Did you have a dental visit in the last 12 months?: Yes Did you have a dental problem in the last 6 months where you did not have access to dental care?: No Was dental information given to patient?: Patient has dentist HPI sciatica issues HPI Details 54 y/o female presents today with complaints of sciatica, L side. Notes symptoms started a month ago. Symptoms resolved but pt notes it had come back about 2 days ago. Notes she had went to urgent care and was given advil, muscle relaxant. [facility] Medical History Hyperlipidemia, unspecified Essential hypertension Diabetes type 2, controlled Surgical History No pertinent past surgical history Family History Father Cancer Myocardial infarction HTN (hypertension) CVD (cardiovascular disease) Mother HTN (hypertension) Alzheimer's disease Diabetes mellitus Brother No problems noted. Sister No problems noted. Daughter No problems noted. Social History Housing: House Alcohol intake: current Alcohol intake frequency: holidays/special occasions only Patient Tobacco Use Status: Never used Tobacco e-Cigarette/Vaping Use: Never Used Second Hand Smoke Exposure: No Patient : No service: No Current occupational status: employed Current occupation: banking Current occupational exposures/hazards: No Cognitive needs: No Hearing needs: No Vision needs: No Questionnaire Thrive Questionnaire Date Thrive assessed: 01/07/25 I am a: Patient What is your living situation today?: I have a steady place to live Within the past 12 months, did the food you bought not last and you didn't have the money to get more?: Never true Within the past 12 months, did you worry whether your food would run out before you got money to buy more?: Never true Do you have trouble paying for medicines?: No Do you have trouble getting transportation to medical appointments?: No Do you have trouble paying your heating and electricity bill?: No Do you have trouble taking care of your child, family member or friend?: No Do you have trouble with day-to-day activities such as bathing, preparing meals, shopping, managing finances, etc.?: No Are you currently unemployed and looking for a job?: No Are you interested in more education?: No Please select the resources that you would like help with: None Currently or been in a relationship where the following occur: No concerns reported THRIVE Score: 0 MIKE-7 AMB Questionnaire MIKE-7 Date MIKE - 7 assessed: 08/11/25 Source: Developed by Drs. Randy Hudson, Martine Ni, Sujit Castillo and colleagues, with an educational mo from [employer]. Review of Systems Const Denies chills, Denies fatigue, Denies fever(s), Denies headache(s) and Denies weakness ENT Denies dizziness and Denies headache(s) Card Denies dyspnea Resp Denies cough, Denies dyspnea, Denies wheezing and Denies other (shortness of breath) Musc Denies numbness and Denies tingling Neuro Denies dizziness, Denies headache(s), Denies numbness, Denies tingling and Denies weakness Psych Denies anxiety and Denies depression Endo Denies fatigue Aller/Immun Denies wheezing Physical exam (Primary Care) Vital Signs: Last Vital Signs Temp 98.6 F 09/11/25 12:00 Pulse 85 09/11/25 12:00 Resp 16 09/11/25 12:00 BP 122/74 09/11/25 12:00 Pulse Ox 99 09/11/25 12:00 Oxygen Delivery Method Room Air 09/11/25 12:00 BMI result Body Mass Index 30.3 Tobacco/Smoking Status: Tobacco use Status Tobacco use date assessed 09/11/25 09/11/25 12:02 Patient Tobacco Use Status Never used Tobacco 09/11/25 11:49 e-Cigarette/Vaping Use Never Used 09/11/25 11:49 Thrive Assessment: Date of Thrive Assessment Date Thrive assessed 01/07/25 09/11/25 11:49 Currently or been in a relationship where the following occur: No concerns reported Const General: well developed; No acute distress Nutritional Appearance: well nourished Orientation/consciousness: patient oriented x3 HENMT Head: Yes normocephalic and Yes atraumatic Eyes General: appearance normal, both eyes and all related structures Pupils: Equal, round and reactive pupils present EOM: EOMs intact bilaterally Resp Effort & Inspection: normal respiratory effort Neuro General: patient oriented x3 and gait normal Cranial nerves: Yes Equal, round and reactive pupils present Psych Affect: normal affect Coding Level of Care Code Est Pt Level 3 (77554) Diagnoses Back pain M54.9 Assessment & Plan Assessment & Plan (1) Back pain: Code(s): M54.9 - Dorsalgia, unspecified Category: Medical Plan: Low back pain and left buttock pain with left-sided sciatica pain down posterior leg Patient was seen at urgent care yesterday and given Advil as well as a muscle relaxer. Can continue muscle relaxer and she will change Advil to meloxicam. Offered short course of steroid but patient declines this. Ultimately will improve and be less likely to recur with physical therapy-ordered Ice/Heat Orders: Orders PT Evaluation and Treatment Today M54.32 - Sciatica, left side, M54.9 - Dorsalgia, unspecified Medications: New meloxicam 15 mg PO DAILY 30 tabs 0RF 30 days
[2025-09-11 12:00] VITALS: BP 122/74; PULSE 85; RESP 16; TEMP 37; O2SAT 99; BMI 30.3
== END 2025-09-11 12:48 | disposition home or self-care (01) ==
LOC: HO.HMCFM 11:34
PROVIDERS: PCP Family Medicine; Visit Provider Family Medicine
DX: M54.9 Dorsalgia, unspecified (principal)

== ENCOUNTER 2025-09-15 08:14 | Outpatient (AMB) | payer BC, SELFPAY | END 2025-09-15 08:21 | disposition home or self-care (01) | LOC: HO.HMGAL 08:14 | PROVIDERS: PCP Family Medicine; Visit Provider Registered Nurse Emergency | DX: J30.89 Other allergic rhinitis (principal) | CPT/HCPCS: 95117; 95165 ==

== ENCOUNTER 2025-10-15 08:20 | Outpatient (AMB) | payer BC, SELFPAY | END 2025-10-15 08:20 | disposition home or self-care (01) | LOC: HO.HMGAL 08:20 | PROVIDERS: PCP Family Medicine; Visit Provider Registered Nurse Emergency | DX: J30.89 Other allergic rhinitis (principal) | CPT/HCPCS: 95117; 95165 ==